=== PATIENT | female | born 1930 | race Caucasian/White ===

== ENCOUNTER 2018-07-02 19:19 | Inpatient (IN) ==
[2018-07-02] MEDS: 0.9 % SODIUM CHLORIDE 1,000 ML IV SCH (20:02)
--- NOTE | 2018-07-02 20:02 | Emergency Department Note ---
Abdominal Pain HPI - General Chief Complaint: Abdominal Pain Stated Complaint: abd. epigastric pain Time Seen by Provider: 07/02/18 19:25 Source: patient Mode of arrival: ambulatory Limitations: no limitations - History of Present Illness HPI Narrative: 87-year-old female presents with mid upper abdominal pain. Onset a week ago. Usually seems to be relieved by eating but never goes away completely. Food does seem to help. No nausea, vomiting. Has had diarrhea today. No fever or chills. No cough or cold symptoms. Saw her primary care provider this morning who adjusted her blood pressure medication and also put her on some Zantac. States that was around lunchtime today. She is still hurting so she decided to come in. She also complains of dizziness for the last couple days it is worse today. Improves with: eating Worsens with: nothing Associated symptoms: Reports: diarrhea. Denies: nausea, vomiting, fever, chills, constipation, dysuria, hematemesis, hematochezia, anorexia, syncope - Related Data Home Medications Medication Instructions Recorded Confirmed coenzyme Q10 100 mg capsule 100 mg PO BID cap 12/01/14 07/02/18 polyethylene glycol 3350 17 17 g PO QDAY each 12/01/14 07/02/18 gram/dose oral powder Flax Oil-[place] 3 1 cap PO QDAY 09/19/16 07/02/18 magnesium oxide 400 mg capsule 400 mg PO QDAY 09/19/16 07/02/18 multivitamin tablet 1 tab PO QDAY tab 09/19/16 07/02/18 salmon oil-omega-3 fatty acids 1,000 cap PO QAM cap 09/19/16 07/02/18 1,000 mg-200 mg capsule aspirin 81 mg chewable tablet 81 mg PO BID tab 08/28/17 07/02/18 calcium carbonate 200 mg calcium 1 cap PO QDAY 11/08/17 07/02/18 (500 mg)-vitamin D3 400 unit capsule Previous Rx's Medication Instructions Recorded hydrochlorothiazide 12.5 mg tablet 12.5 mg PO QDAY #90 tab 02/27/18 atorvastatin 20 mg tablet 20 mg PO QHS #90 tab 05/21/18 losartan 50 mg tablet 50 mg PO QDAY #30 tab 05/21/18 sulfamethoxazole 800 1 tab PO BID #14 tab 06/26/18 mg-trimethoprim 160 mg tablet Allergies Allergy/AdvReac Type Severity Reaction Status Date / Time Amoxicillin [From Augmentin] Allergy Unknown Unknown Verified 07/02/18 13:54 clavulanic acid Allergy Unknown Unknown Verified 07/02/18 13:54 [From Augmentin] Iodinated Contrast- Oral and Allergy Unknown Unknown Verified 07/02/18 13:54 IV Dye [Iodinated Contrast Media - IV Dye] Advair AdvReac Unknown Rash Uncoded 07/02/18 13:54 Review of Systems All systems ED: reviewed and negative except as stated. Abdominal Pain PMH - Past Medical History [facility], LAT[facility] Narrative: Medical History (Last Reviewed 12/25/17 @ 13:34 by Lorie Espitia MD) History of polymyalgia rheumatica (Chronic) Hypertensive renal disease (Chronic) History of hysterectomy (Chronic) Vitreous degeneration (Chronic) Vitamin D deficiency (Chronic) Benign paroxysmal positional vertigo (Chronic) Renal osteodystrophy (Chronic) Renal insufficiency (Chronic) PVC's (premature ventricular contractions) (Chronic) Pseudophakia (Chronic) Prediabetes (Chronic) Partial optic atrophy (Chronic) Palpitations (Chronic) Osteopenia (Chronic) Osteoarthrosis (Chronic) Obesity (Chronic) Polymyalgia (Chronic) Macular degeneration (Chronic) Keratoconjunctivitis sicca not specified as Sjogren's (Chronic) Hypothyroidism, acquired (Chronic) Hypertension, essential (Chronic) Hyperlipidemia (Chronic) Hypercalcemia (Chronic) Head injury (Chronic) Gastroesophageal reflux (Chronic) Diverticulosis of colon (Chronic) Depression (Chronic) Chronic kidney disease (CKD), stage III (moderate) (Chronic) Mahajan's palsy (Chronic) Anxiety disorder (Chronic) Anemia (Chronic) Personal history of allergy to radiographic dye (Chronic) Allergic rhinitis (Chronic) Past Surgical History (Last Reviewed 12/25/17 @ 13:34 by Lorie Espitia MD) History of lumbar laminectomy (Chronic) History of colonoscopy (Chronic 08/17/16) History of cataract surgery (Chronic) History of (Chronic) - Social History Smoking status: Never smoker Alcohol use: Reports: None Drug use: Reports: none Physical Exam Limitations: no limitations General appearance: alert, in no apparent distress Head: atraumatic, normocephalic, normal inspection Eye: Present: normal appearance. Absent: conjunctival injection ENT: normal exam, normal oropharynx, mucous membranes moist, TM's normal bilaterally, normal external ear exam Neck: Present: normal inspection, trachea midline. Absent: tenderness, lymphadenopathy Chest: Present: symmetric chest wall rise Respiratory: Present: normal lung sounds bilaterally. Absent: respiratory distress, rales/crackles, wheezes, accessory muscle use Cardiovascular: Present: regular rate, normal heart sounds Abdominal: Present: soft, tenderness (Midepigastric), normal bowel sounds. Absent: distention, mass Extremities: Present: normal inspection, normal capillary refill Neurological: Present: alert, oriented X3, normal gait Psychiatric: Present: normal affect, normal mood Skin: Present: warm, dry, intact, normal color. Absent: rash, cyanosis, diaphoresis, erythema Course Course Narrative: At 2100 I did speak with the hospitalist, Dr. Cadet who agrees to accept this patient Vital Signs Temperature 97.5 F 07/02/18 19:19 Pulse Rate 77 07/02/18 19:19 Respiratory Rate 20 07/02/18 19:19 Blood Pressure 208/89 07/02/18 19:19 Pulse Oximetry (%) 98 07/02/18 19:19 Temperature 97.5 F 07/02/18 19:19 Pulse Rate 68 07/02/18 20:56 Respiratory Rate 20 07/02/18 20:56 Blood Pressure 178/89 07/02/18 20:56 Pulse Oximetry (%) 98 07/02/18 20:56 Abdominal Pain - Lab Data Lab results reviewed: Yes I reviewed the patient's lab results. Result diagrams: 07/02/18 19:25 Lab Results 07/02/18 07/02/18 Range/Units 19:25 20:37 POC Hct 36.0 (36.0-48.0) % POC Sodium 114 L* (133-145) mmol/L Sodium Cancelled POC Potassium 4.1 (3.3-5.1) mmol/L Potassium Cancelled POC Chloride 84 L (96-108) mmol/L Chloride Cancelled Carbon Dioxide Cancelled POC Total CO2 18 L (22-30) mmol/L Anion Gap Cancelled POC BUN 14 (8-23) mg/dl BUN Cancelled Creatinine Cancelled POC Creatinine 1.0 (0.6-1.1) mg/dl GFR Calculation Cancelled BUN/Creatinine Ratio Cancelled Glucose Cancelled POC Glucose 133 H (70-105) mg/dL Calcium Cancelled POC WB Ioniz Calcium 1.00 L (1.16-1.32) mmol/L Total Bilirubin Cancelled AST Cancelled ALT Cancelled Alkaline Phosphatase Cancelled Total Protein Cancelled Albumin Cancelled Globulin Cancelled Albumin/Globulin Ratio Cancelled Amylase 112 H (28-100) U/L Lipase 73 H (7-60) U/L Disposition Pt seen by 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
[2018-07-02] MEDS ORDERED: PHENobarb/HYOSCY/ATROPINE/SCOP 1 DOSE BOTTLE PO ONE (20:14)
[2018-07-02 20:19] LABS: Amylase 112 U/L (28-100); Lipase 73 U/L (7-60)
[2018-07-02] MEDS ORDERED: ONDANSETRON 4 MG/2 ML VIAL IV ONE (20:27)
[2018-07-02 21:46] LABS: ALT/SGPT 18 U/l (0-40); Albumin 4.2 gm/dL (3.2-5.2); Albumin/Globulin Ratio 1.6 (1.0-2.3); Alkaline Phosphatase 74 U/L (39-117); Blood Urea Nitrogen 14 mg/dl (8-23)
[2018-07-02 22:33] LABS: Appearance,Urine CLEAR; Bacteria,Urine 0 /hpf (0); Bilirubin,Urine NEG (NEG); Color,Urine STRAW; Glucose,Urine (UA) NEGATIVE (NEG); Leukocyte Esterase,Urine NEG /uL (NEG); Mucus,Urine FEW /hpf (0); Protein,Urine NEG (NEG); Specific Gravity,Urine 1.008 (1.000-1.035); Urine Blood NEG mg/dL (<0.03); Urine RBC 0 /hpf (0-1); Urine Squamous Epithelial Cell 0 /hpf (0-4); Urine WBC < 1 /hpf (0-4); Urobilinogen,Urine NEG (NEG)
--- NOTE | 2018-07-02 23:11 | Internal Med History&Physical ---
Medical - H&P: HPI Patient information: Note initiated : 07/02/18 at 10:58 pm Service Date, if different from initiated Date: [] Patient: Melody Bailey a 87 y/o F admitted on for abd. epigastric pain. Chief Complaint: [] History of present illness: Ms. Bailey is a 87 year old F with h/o ckd, htn on hctz, presents to the Er today for evaluation of weakness and abdominal pain x 3-4 days. The patient notes that she was seen by her PCP for urinary tract infection approximately 1 week ago, the patient was prescribed Bactrim, a few days later the patient developed abdominal pain, epigastric and esophageal burning in nature, associated with reflux and non radiating, better with food, no aggravating factors. The patient had loose bowel movements x 1 day. The patient has nausea and poor appeitite x 1 week, the patient had diarrhea x 1 day since yesterday loose ,not watery, no blood. The patient denies any fever, chest pain, cough, she admits to being very weak and fatigued and dizzy. She has chronic neck pain, which is also being exacerbated at this time. The patient is accompained by her , her abdominal pain had resolved at the time of my evaluation. The patient in the ER she was afebrile hemodynamically stable heart rate 77 blood pressure 160 x 90 saturating 96% room air. WBC done today was 8.4, hemoglobin 12.5 platelets 441. Sodium was 113, potassium 4.2 bicarbonate 18 chloride 79 BUN 14 creatinine 1.2 glucose 133 Pt is being admitted to the hospital for further management. All systems: reviewed and no additional remarkable complaints except as stated (as per HPI rest negative) Medical - H&P: PMH Medical history: Medical History (Last Reviewed 12/25/17 @ 13:34 by Lorie Espitia MD) History of polymyalgia rheumatica (Chronic) Hypertensive renal disease (Chronic) History of hysterectomy (Chronic) Vitreous degeneration (Chronic) Vitamin D deficiency (Chronic) Benign paroxysmal positional vertigo (Chronic) Renal osteodystrophy (Chronic) Renal insufficiency (Chronic) PVC's (premature ventricular contractions) (Chronic) Pseudophakia (Chronic) Prediabetes (Chronic) Partial optic atrophy (Chronic) Palpitations (Chronic) Osteopenia (Chronic) Osteoarthrosis (Chronic) Obesity (Chronic) Polymyalgia (Chronic) Macular degeneration (Chronic) Keratoconjunctivitis sicca not specified as Sjogren's (Chronic) Hypothyroidism, acquired (Chronic) Hypertension, essential (Chronic) Hyperlipidemia (Chronic) Hypercalcemia (Chronic) Head injury (Chronic) Gastroesophageal reflux (Chronic) Diverticulosis of colon (Chronic) Depression (Chronic) Chronic kidney disease (CKD), stage III (moderate) (Chronic) Mahajan's palsy (Chronic) Anxiety disorder (Chronic) Anemia (Chronic) Personal history of allergy to radiographic dye (Chronic) Allergic rhinitis (Chronic) Surgical history: Past Surgical History (Last Reviewed 12/25/17 @ 13:34 by Lorie Espitia MD) History of lumbar laminectomy (Chronic) History of colonoscopy (Chronic 08/17/16) History of cataract surgery (Chronic) History of (Chronic) Pertinent family history: Family History (Last Reviewed 12/25/17 @ 13:34 by Lorie Espitia MD) Unknown Disorder of joint Medical - H&P: Meds Home Medications Medication Instructions Recorded Confirmed Type coenzyme Q10 100 mg capsule 100 mg PO BID cap 12/01/14 07/02/18 History polyethylene glycol 3350 17 17 g PO QDAY each 12/01/14 07/02/18 History gram/dose oral powder Flax Oil-[place] 3 1 cap PO QDAY 09/19/16 07/02/18 History magnesium oxide 400 mg capsule 400 mg PO QDAY 09/19/16 07/02/18 History multivitamin tablet 1 tab PO QDAY tab 09/19/16 07/02/18 History salmon oil-omega-3 fatty acids 1,000 cap PO QAM cap 09/19/16 07/02/18 History 1,000 mg-200 mg capsule aspirin 81 mg chewable tablet 81 mg PO BID tab 08/28/17 07/02/18 History calcium carbonate 200 mg calcium 1 cap PO QDAY 11/08/17 07/02/18 History (500 mg)-vitamin D3 400 unit capsule hydrochlorothiazide 12.5 mg tablet 12.5 mg PO QDAY #90 tab 02/27/18 07/02/18 Rx atorvastatin 20 mg tablet 20 mg PO QHS #90 tab 05/21/18 07/02/18 Rx Losartan [Cozaar] 50 mg PO BID 07/02/18 07/02/18 History Ranitidine HCl [Acid Painting Manager] 150 mg PO BID 07/02/18 07/02/18 History Allergies Allergy/AdvReac Type Severity Reaction Status Date / Time Amoxicillin [From Augmentin] Allergy Unknown Unknown Verified 07/02/18 13:54 clavulanic acid Allergy Unknown Unknown Verified 07/02/18 13:54 [From Augmentin] Iodinated Contrast- Oral and Allergy Unknown Unknown Verified 07/02/18 13:54 IV Dye [Iodinated Contrast Media - IV Dye] Advair AdvReac Unknown Rash Uncoded 07/02/18 13:54 Medical - H&P: Exam - Constitutional Vitals: Temp Pulse Resp BP Pulse Ox 97.5 F 62 17 183/82 96 07/02/18 19:19 07/02/18 22:52 07/02/18 22:52 07/02/18 22:52 07/02/18 22:52 Exam: GENERAL: The patient is a well-developed, well-nourished in no apparent distress. Is alert and oriented x3. Old frail lady VITAL SIGNS: Reviewed and as noted elsewhere. HEENT: Head is normocephalic and atraumatic. Extraocular muscles are intact. Pupils are equal, round, and reactive to light. Nares appeared normal. Mouth appears any without lesions. Mucous membranes are dry. NECK: Normal to inspection, Supple, No lymphadenopathy or thyromegaly. LUNGS: Air entry equal on both sides, no wheezing, crackles or rhonchi noted. No accessory muscles of respiration HEART: Regular rate and rhythm normal, S1 and S2 heard, no Gallop, S3 or Rub Noted, No Gross murmur heard. ABDOMEN: Soft, nontender, and nondistended. Positive bowel sounds. No hepatosplenomegaly was noted. EXTREMITIES: No cyanosis, clubbing, rash, lesions or edema. NEUROLOGIC: Cranial nerves II through XII are grossly intact. Motor and Sensory System Grossly Intact PSYCHIATRIC: Normal affect, Normal Mood. Appropriate Behavior. SKIN: No ulceration or wounds noted, No jaundice, No rash noted. Medical - H&P: Reslt - Labs CBC & Chem 7: 07/02/18 20:37 Labs: BMP 07/02/18 07/02/18 19:25 20:37 Sodium Cancelled 113 L* Potassium Cancelled 4.2 Chloride Cancelled 79 L Carbon Dioxide Cancelled 18 L BUN Cancelled 14 Creatinine Cancelled 1.2 H Glucose Cancelled 133 H Calcium Cancelled 8.6 Liver Function 07/02/18 07/02/18 Range/Units 19:25 20:37 Total Bilirubin Cancelled 0.2 AST Cancelled 33 ALT Cancelled 18 Alkaline Phosphatase Cancelled 74 Albumin Cancelled 4.2 Urine 07/02/18 Range/Units 21:01 Urine Color Straw Urine Appearance Clear Urine pH 7.0 (5.0-9.0) Ur Specific Tiger 1.008 (1.000-1.035) Urine Protein Neg (NEG) mg/dL Urine Glucose (UA) Negative (NEG) mg/dL Medical - H&P: A/P - Narrative A/P Narrative: A/P Hyponatremia -due to dehydration (poor intake), use of hctz check urine Na, urine osm, serum osm, tsh, and cortisol UTI -check UA HTN hold hctz, continue losartan, start amlodipine prn clonidine for now Abdominal pain gastritis likely, IV ppi for now mildly elevated lipase and amylase. if trending upwards will get CT abdomen and pelvis Depression/Anxiety resume home meds CKD Creat is stable Chr pain pain management for now. DVT hep sq Full code. Social History - Social History marital status: - Tobacco smoking status: Never smoker - Alcohol alcohol intake frequency: does not drink - Substance use substance use type: does not use
[2018-07-02 23:21] LABS: Osmolality,Urine 241 mOsm/kg (80-1000)
--- NOTE | 2018-07-02 23:25 | Emergency Department Note ---
ED Note Addendum Note Addendum: Hyponatremia. Agree with diagnosis and treatment per Dr. Cadet contacted and patient to be admitted
[2018-07-03] MEDS ORDERED: NALOXONE HCL 0.4 MG/ML VIAL IV PRN (00:04)
[2018-07-03] MEDS ORDERED: ACETAMINOPHEN 325 MG TABLET PO PRN (00:04)
[2018-07-03] MEDS ORDERED: oxyCODONE/APAP 5/325MG TABLET PO PRN (00:04)
[2018-07-03] MEDS ORDERED: PANTOPRAZOLE 40 MG VIAL IV ONE (00:13)
[2018-07-03] MEDS ORDERED: oxyCODONE HCL 5 MG TABLET PO ONE (00:21)
[2018-07-03] MEDS: 0.9 % SODIUM CHLORIDE 1,000 ML IV SCH ×3 (00:28→07:37)
[2018-07-03] MEDS: PANTOPRAZOLE 40 MG VIAL IV SCH ×3 (00:31→17:20)
[2018-07-03] MEDS ORDERED: ONDANSETRON 4 MG/2 ML VIAL ONE ×2 (01:29→04:03)
[2018-07-03] MEDS: ONDANSETRON 4 MG/2 ML VIAL IV PRN ×3 (01:33→11:30)
[2018-07-03] MEDS: 0.9 % SODIUM CHLORIDE 10 ML SYRINGE IV SCH ×3 (04:51→21:14)
[2018-07-03 07:02] LABS: Basophils # (Auto) 0 K/mcL (0.0-0.3); Basophils % (Auto) 0.1 % (0.0-2.0); Eosinophils # (Auto) 0 K/mcL (0.0-0.7); Eosinophils % (Auto) 0.2 % (0.0-7.0); Granulocytes % (Auto) 77.8 % (38.0-78.0); Lymphocytes # (Auto) 1.2 K/mcL (1.5-4.8); Mean Cell Volume 89.8 fL (80.0-100.0); Mean Corpuscular HGB Conc 32.7 g/dL (31.0-36.0); Monocytes # (Auto) 0.6 K/mcL (0.1-0.9); Monocytes % (Auto) 6.9 % (1.0-12.0); Platelet Count 352 K/mcL (140-440); RBC 3.67 M/mcL (4.00-5.20); Red Cell Distribution Width 13.6 % (11.5-14.5)
[2018-07-03 07:25] LABS: ALT/SGPT 18 U/l (0-40); Albumin 3.6 gm/dL (3.2-5.2); Albumin/Globulin Ratio 1.4 (1.0-2.3); Alkaline Phosphatase 70 U/L (39-117); Amylase 81 U/L (28-100); Bilirubin,Direct < 0.2 mg/dL (0.0-0.3); Blood Urea Nitrogen 11 mg/dl (8-23); Gamma Glutamyl Transpeptidase 23 U/L (5-36); Lipase 47 U/L (7-60); Uric Acid 2.6 mg/dL (2.5-8.0)
[2018-07-03] MEDS: cloNIDine HCL 0.1 MG TABLET PO PRN (07:34)
--- NOTE | 2018-07-03 07:49 | XRay Report ---
HISTORY: Abdominal pain FINDINGS: The bowel gas pattern is normal. There are a few vascular calcifications in the pelvis. No free intra-abdominal air is present. There is a levoscoliotic curvature in the upper lumbar spine. Postoperative changes are present following laminectomy with posterior fusion at L4-5. IMPRESSION: No acute abnormality Interpreted and Authenticated by: Keenan Matias 07/03/18
--- NOTE | 2018-07-03 08:49 | XRay Report ---
HISTORY: Hyponatremia with epigastric pain FINDINGS: The lungs are clear. The heart, mediastinum, dea and pleura are normal. No free intra-abdominal air is present. There has been no significant change since 08/09/11 IMPRESSION: Normal chest. Interpreted and Authenticated by: Keenan Matias 07/03/18
[2018-07-03] MEDS ORDERED: LOSARTAN 50 MG TABLET PO SCH (09:00)
[2018-07-03] MEDS ORDERED: METOCLOPRAMIDE 10 MG/2 ML VIAL IV PRN (09:12)
[2018-07-03] MEDS: HEPARIN 5,000 UNIT/ML VIAL SQ SCH ×2 (09:26→21:14)
[2018-07-03] MEDS: ASPIRIN 81 MG TAB.CHEW PO SCH ×2 (09:26→21:14)
[2018-07-03] MEDS: amLODIPine 5 MG TABLET PO SCH (09:27)
[2018-07-03] MEDS: LOSARTAN 50 MG TABLET PO SCH (09:27)
[2018-07-03] MEDS: MULTIVIT,THER IRON,CA,FA & MIN 1 TABLET PO SCH (09:28)
[2018-07-03] MEDS: MAGNESIUM OXIDE 400 MG TABLET PO SCH (09:29)
--- NOTE | 2018-07-03 10:05 | Cat Scan Report ---
CLINICAL INFORMATION: Abdominal and epigastric pain, nausea COMPARISON: 01/24/12 TECHNIQUE: The abdomen was imaged without oral or IV contrast, scanning from the diaphragm to the symphysis pubis. Sagittal and coronal reformats were created. The radiation exposure was limited using dose reduction technology FINDINGS: Mild parenchymal scarring is present in both lung bases. This is a chronic stable finding. There is a small to intermediate size hiatus hernia. This contains some radiopaque material which appears to be barium. There is no barium within the stomach. There is some barium or other radiopaque material in the proximal large intestine but there is no contrast in the small intestine. The stomach, large and small intestine are normal in caliber, without evidence of ileus or obstruction. There are several noninflamed diverticula in the sigmoid colon. The liver and spleen are normal in size and homogeneous. The gallbladder is contracted and there are few tiny stones layering along the posterior wall. The wall does not appear to be thickened. The bile ducts are nondilated. The pancreas, adrenals and kidneys appear normal. Contiguous with the mid and distal portion of the right ureter there are couple tiny calcifications. These are probably phleboliths in the right ovarian vein. The ureter is nondilated. Moderate amount calcified plaque is present in normal caliber abdominal aorta and iliac arteries. Urinary bladder is moderately distended but the wall is thin and no intraluminal filling defect is seen within the bladder. The uterus and ovaries are surgically absent. There is a small fat-containing left inguinal hernia. It measures 2 cm. Severe degenerative changes are present throughout the lumbar spine. There has been a laminectomy and posterior fusion at L4-5. Mild anterior wedge compression fracture is present at T10. Degenerative changes in the spine are chronic but there has been progression of the disc disease at L1-2 since 2012. IMPRESSION: Hiatus hernia which is unchanged from 2012 Cholelithiasis but without radiographic evidence of cholecystitis Diverticulosis but without evidence of diverticulitis Interpreted and Authenticated by: Keenan Matias 07/03/18
[2018-07-03] MEDS: HYDROmorphone 2 MG TABLET PO PRN ×2 (11:29→17:42)
[2018-07-03 13:47] LABS: Blood Urea Nitrogen 9 mg/dl (8-23)
[2018-07-03] MEDS ORDERED: DESMOPRESSIN ACETATE 1 MCG in 0.9 % SODIUM CHLORIDE 50 ML IV ONE (13:56)
[2018-07-03] MEDS ORDERED: SODIUM CHLORIDE 3 % 500 ML IV SCH ×2 (14:00→17:12)
--- NOTE | 2018-07-03 14:52 | Internal Med Progress Note ---
Medical - PN: Subj Patient information: Note initiated : 07/03/18 at 2:49 pm Service Date, if different from initiated Date: [] Patient: Melody Bailey a 87 y/o F admitted on 07/02/18 for abd. epigastric pain. Chief Complaint: [] Interval history: Ms. Bailey is a 87 year old F with h/o ckd, htn on hctz, presents to the Er today for evaluation of weakness and abdominal pain x 3-4 days. The patient notes that she was seen by her PCP for urinary tract infection approximately 1 week ago, the patient was prescribed Bactrim, a few days later the patient developed abdominal pain, epigastric and esophageal burning in n ature, associated with reflux and non radiating, better with food, no aggravating factors. The patient had loose bowel movements x 1 day. The patient has nausea and poor appeitite x 1 week, the patient had diarrhea x 1 day since yesterday loose ,not watery, no blood. The patient denies any fever, chest pain, cough, she admits to being very weak and fatigued and dizzy. She has chronic neck pain, which is also being exacerbated at this time. The patient is accompained by her , her abdominal pain had resolved at the time of my evaluation. The patient in the ER she was afebrile hemodynamically stable heart rate 77 blood pressure 160 x 90 saturating 96% room air. WBC done today was 8.4, hemoglobin 12.5 platelets 441. Sodium was 113, potassium 4.2 bicarbonate 18 chloride 79 BUN 14 creatinine 1.2 glucose 133 Pt is being admitted to the hospital for further management. 2/5 Pt seen examined, no acute issues, still has some abdominal pain, CT done without contrast, no acute issues, bladder was full, denney placed Sodium monitored, nephrology consulted to help with sodium management. Pertinent ROS: Denies headache, dizziness Denies chest pain, palpitations Denies cough or shortness of breath abdominal pain and nausea persistent, somewhat better than yesterday. - Constitutional Vitals: Vital Signs Temp Pulse Resp BP Pulse Ox 98.7 F 59 L 16 145/63 98 07/03/18 11:36 07/03/18 11:36 07/03/18 11:36 07/03/18 11:36 07/03/18 11:36 Period Temp Pulse Resp BP Sys/Trent Pulse Ox Last 24 Hr 97.5 F-98.7 F 59-77 14-20 145-208/63-90 96-100 Intake and Output 07/03/18 07/03/18 07/03/18 05:59 13:59 21:59 Intake Total 1300 2070 Output Total 500 1425 Balance 800 645 Weight 144 lb 8 oz Intake & Output: Intake & Output 07/03/18 07/03/18 07/03/18 05:59 13:59 21:59 Intake Total 1300 2070 Output Total 500 1425 Balance 800 645 Weight 144 lb 8 oz Intake: IV 1000 900 Sodium Chloride 0.9% 1,000 ml @ 1000 900 150 mls/hr IV .Q6H40M [facility] Rx#: [id number] Oral 300 1170 Output: Urine Catheter Amount 800 Void Amount 500 625 Other: Meal Lunch Percent of Meal Consumed 50% Feeding Ability Independent Urine Appearance Clear Urine Color Pale # Voids 2 1 Exam: Constitutional; Afebrile, cooperative, alert, not in distress. Respiratory system: Air Entry equal on both sides, No crackles or wheezing, no rhonchi. CVS- Rate rhythm regular, S1,S2 heard, no gallop, no rub. Abdomen- Soft nontender abdomen, no organomegaly, no tenderness, no guarding or rigidity, NEWSPAPER MANAGER- AOOx3, moving all extremities, no gross focal deficit noted. Medical - PN: Obj Da - Labs CBC & Chem 7: 07/03/18 03:50 07/03/18 12:50 Labs: Abnormal Lab Results 07/03/18 07/03/18 07/03/18 12:50 12:50 03:50 RBC Hgb Hct MPV Lymph % (Auto) Lymph # (Auto) POC Sodium Sodium 112 L* 116 L* POC Chloride Chloride 79 L 81 L Carbon Dioxide 20 L POC Total CO2 Creatinine Glucose 140 H POC Glucose Osmolality 236 L Calcium 8.4 L 8.4 L POC WB Ioniz Calcium Phosphorus 2.2 L Amylase Lipase 07/03/18 07/02/18 07/02/18 03:50 23:50 20:37 RBC 3.67 L Hgb 10.8 L Hct 33.0 L MPV 7.3 L Lymph % (Auto) 15.0 L Lymph # (Auto) 1.2 L POC Sodium 115 L* Sodium POC Chloride 83 L Chloride Carbon Dioxide POC Total CO2 20 L Creatinine Glucose POC Glucose 125 H Osmolality 240 L Calcium POC WB Ioniz Calcium 1.07 L Phosphorus Amylase Lipase 07/02/18 07/02/18 20:37 19:25 RBC Hgb Hct MPV Lymph % (Auto) Lymph # (Auto) POC Sodium 114 L* Sodium 113 L* POC Chloride 84 L Chloride 79 L Carbon Dioxide 18 L POC Total CO2 18 L Creatinine 1.2 H Glucose 133 H POC Glucose 133 H Osmolality Calcium POC WB Ioniz Calcium 1.00 L Phosphorus Amylase 112 H Lipase 73 H Meds: Medications Acetaminophen (Tylenol) 650 mg PO Q6HP PRN PRN Reason: PAIN/FEVER > 101 Amlodipine Besylate (Norvasc) 5 mg PO DAILY [facility] Last Admin: 07/03/18 09:27 Dose: 5 mg Documented by: Aspirin (Aspirin) 81 mg PO BID [facility] Last Admin: 07/03/18 09:26 Dose: 81 mg Documented by: Atorvastatin Calcium (Lipitor) 20 mg PO QHS [facility] Clonidine HCl (Catapres) 0.1 mg PO Q4HP PRN PRN Reason: Hypertension Last Admin: 07/03/18 07:34 Dose: 0.1 mg Documented by: Heparin Sodium (Porcine) (Heparin) 5,000 unit SQ Q12 [facility] Last Admin: 07/03/18 09:26 Dose: 5,000 unit Documented by: Hydromorphone HCl (Dilaudid) 2 mg PO Q4HP PRN PRN Reason: PAIN LEVEL 3-6 Last Admin: 07/03/18 11:29 Dose: 2 mg Documented by: Sodium Chloride (Sodium Chloride 3%) 500 mls @ 20 mls/hr IV ONCE [facility] Last Admin: 07/03/18 14:44 Dose: 20 mls/hr Documented by: Iron Carb/Multivit/Pillowcase Sewer/Folic Acid (Multivitamin W/Minerals) 1 tab PO DAILY [facility] Last Admin: 07/03/18 09:28 Dose: 1 tab Documented by: Losartan Potassium (Cozaar) 100 mg PO DAILY [facility] Last Admin: 07/03/18 09:27 Dose: 100 mg Documented by: Magnesium Oxide (Magnesium Oxide) 400 mg PO DAILY [facility] Last Admin: 07/03/18 09:29 Dose: 400 mg Documented by: Metoclopramide HCl (Reglan) 5 mg IV Q6HP PRN PRN Reason: Nausea And Vomiting Last Admin: 07/03/18 09:26 Dose: 5 mg Documented by: Naloxone HCl (Narcan) 0.1 mg IV Q2MIN PRN PRN Reason: Opiate Reversal Ondansetron HCl (Zofran) 4 mg IV Q4HP PRN PRN Reason: Nausea And Vomiting Last Admin: 07/03/18 11:30 Dose: 4 mg Documented by: Pantoprazole Sodium (Protonix) 40 mg IV BIDAC [facility] Last Admin: 07/03/18 07:30 Dose: 40 mg Documented by: Sodium Chloride (Saline Flush) 10 ml IV Q8 [facility] Last Admin: 07/03/18 14:44 Dose: 10 ml Documented by: Medical - PN: A/P - Time Spent With Patient Total time spent is greater than 50% in coordination of care (as documented) at patient's floor/unit and/or counseling patient: - Narrative A/P Narrative: A/P Hyponatremia -Dehydration, decreased oral intake p oor solute intake -urine sodium and urine osm suggestive of SIADH, but pt also on hctz. -nephrolgoy consulted -monitor sodium closely, target 8-10meq over 24 hrs UTI -resolved HTN hold hctz, continue losartan, start amlodipine prn clonidine for now Abdominal pain gastritis likely, IV ppi for now CT neg for any acute findings. Depression/Anxiety stable not on any meds at this time. CKD Creat is stable Nephrology following [facility] pain pain management for now. pt does not wish percoset, use oral dilaudid and see how she responds. DVT hep sq Full code. Medical - PN: Qual - VTE Deep Vein Thrombosis/Pulmonary Embolism Present on Admission: No
--- NOTE | 2018-07-03 16:01 | Nephrology Consult Note ---
History of Present Illness - Reason for Consult Patient information: Note initiated : 07/03/18 at 3:56 pm Service Date, if different from initiated Date: [] Patient: Melody Bailey 87 y/o F admitted on 07/02/18 for abd. epigastric pain. Chief Complaint: [] Consult date: 07/03/18 hyponatremia Requesting physician: Stephanie Cadet - Chief Complaint abdominal pain - History of Present Illness Patient is a 87 y/o female with PMH of htn, chronic pain, CKD stage III and other medical issues who is admitted with hyponatremia Patient states she had an episode of pansensitive E coli UTI which was treated with bactrim for a week, she started feeling sick with abdominal pain after that and was eating poorly and unable to drink much fluids, She was seen in the clinic yesterday for the same but her symptoms got worse and she presented to the ER. She also has issues with chronic neck and back pain. Patient on evaluation was found to have sodium level of 116 and hence hospitalised She was thought to have volume depletion and she has received normal saline with no improvement in her sodium level and level has fluctuated between 113-116 and on recheck this afternoon was 112 Patient c/o nausea and one episode of vomiting and loose stools before presentation at home She also had some dizziness/sensation of loss of balance she denied any fall denies any confusion she did feel very weak Review of Systems All systems PM: reviewed and no additional remarkable complaints except as stated ( ABOVE, NO fever, chills, no other issues) Past History Past medical history: History of polymyalgia rheumatica Chronic Hypertensive renal disease Chronic History of hysterectomy Chronic Vitreous degeneration Chronic Vitamin D deficiency Chronic Benign paroxysmal positional vertigo Chronic Renal osteodystrophy Chronic Renal insufficiency Chronic PVC's (premature ventricular contractions) Chronic Pseudophakia Chronic Prediabetes Chronic Partial optic atrophy Chronic Palpitations Chronic Osteopenia Chronic Osteoarthrosis Chronic Obesity Chronic Polymyalgia Chronic Macular degeneration Chronic Keratoconjunctivitis sicca not specified as Sjogren's Chronic Hypothyroidism, acquired Chronic Hypertension, essential Chronic Hyperlipidemia Chronic Hypercalcemia Chronic Head injury Chronic Gastroesophageal reflux Chronic Diverticulosis of colon Chronic Depression Chronic Chronic kidney disease (CKD), stage III (moderate) Chronic Mahajan's palsy Chronic Anxiety disorder Chronic Anemia Chronic Personal history of allergy to radiographic dye Chronic Allergic rhinitis Chronic Past surgical history: History of lumbar laminectomy Chronic History of colonoscopy Chronic 08/17/16 History of cataract surgery Chronic History of Chronic Past family history: not pertinent Past social history: no addictions lives with her Medications and Allergies Home Medications Medication Instructions Recorded Confirmed Type coenzyme Q10 100 mg capsule 100 mg PO BID cap 12/01/14 07/02/18 History polyethylene glycol 3350 17 17 g PO QDAY each 12/01/14 07/02/18 History gram/dose oral powder Flax Oil-Gunter 3 1 cap PO QDAY 09/19/16 07/02/18 History magnesium oxide 400 mg capsule 400 mg PO QDAY 09/19/16 07/02/18 History multivitamin tablet 1 tab PO QDAY tab 09/19/16 07/02/18 History salmon oil-omega-3 fatty acids 1,000 cap PO QAM cap 09/19/16 07/02/18 History 1,000 mg-200 mg capsule aspirin 81 mg chewable tablet 81 mg PO BID tab 08/28/17 07/02/18 History hydrochlorothiazide 12.5 mg tablet 12.5 mg PO QDAY #90 tab 02/27/18 07/02/18 Rx atorvastatin 20 mg tablet 20 mg PO QHS #90 tab 05/21/18 07/02/18 Rx Losartan [Cozaar] 50 mg PO BID 07/02/18 07/02/18 History Ranitidine HCl [Acid Rug Cleaner Helper] 150 mg PO BID 07/02/18 07/03/18 History Allergies Allergy/AdvReac Type Severity Reaction Status Date / Time Amoxicillin [From Augmentin] Allergy Unknown Unknown Verified 07/02/18 13:54 clavulanic acid Allergy Unknown Unknown Verified 07/02/18 13:54 [From Augmentin] Iodinated Contrast- Oral and Allergy Unknown Unknown Verified 07/02/18 13:54 IV Dye [Iodinated Contrast Media - IV Dye] Advair AdvReac Unknown Rash Uncoded 07/02/18 13:54 Exam - Vital Signs Vital signs: Temp Pulse Resp BP Pulse Ox 98.7 F 59 L 16 145/63 98 07/03/18 11:36 07/03/18 11:36 07/03/18 11:36 07/03/18 11:36 07/03/18 11:36 - General Appearance General appearance: appears started age, frail EENT: mucous membranes moist Neck: no JVD Respiratory: clear Cardiology: no rub, no edema, regular rate, regular rhythm Gastrointestinal: no tenderness, no guarding Integumentary: no rash, warm and dry Neurologic: alert and oriented x3 Musculoskeletal: no erythema, no cyanosis Psychiatric: mood/affect appropriate Results - Lab Results 07/03/18 03:50 07/03/18 12:50 Most recent lab results Calcium 8.4 mg/dl (8.6-10.4) L 07/03/18 12:50 Phosphorus 2.2 mg/dL (2.7-4.5) L 07/03/18 03:50 Magnesium 1.7 mg/dL (1.6-2.5) 07/03/18 03:50 Assessment and Plan (1) Hyponatremia Status: Acute - Narrative A/P Narrative: Patient with hypo osmolar hyponatremia with serum osm at 236, urine osm of 241, urine sodium of 54, serum uric acid of 2.6 no e/o fluid excess on exam likely excessive ADH secretion in the setting of severe pain, use of hctz and low solute intake likely contributing sodium level down to 112 with pt c/o weakness CXR is normal and CT abdomen with no concern of malignancy though this non contrast study given this will treat with 3% saline at 15-20cc/hour with ddavp at 1mcg q8hr to prevent overcorrection goal to correct sodium to 116-118 by 2pm tomorrow monitor serum sodium q2-4hr depending on response patient should be on fluid restriction at 1500cc/day will follow along CKD stage III: renal function stable and at baseline anemia: will need to trend Hb as has dropped, will defer to hospitalist Thank you for giving me an opportunity to participate in Ms Bailey's medical care, appreciate it
[2018-07-03 17:11] LABS: Blood Urea Nitrogen 10 mg/dl (8-23)
[2018-07-03 20:35] LABS: Blood Urea Nitrogen 11 mg/dl (8-23)
[2018-07-03] MEDS: SODIUM CHLORIDE 3 % 500 ML IV SCH (20:50)
[2018-07-03] MEDS: ATORVASTATIN 20 MG TABLET PO SCH (21:14)
[2018-07-04 01:30] LABS: Blood Urea Nitrogen 11 mg/dl (8-23)
[2018-07-04] MEDS ORDERED: DESMOPRESSIN ACETATE 1 MCG in 0.9 % SODIUM CHLORIDE 50 ML IV ONE ×3 (01:43→20:00)
[2018-07-04] MEDS: 0.9 % SODIUM CHLORIDE 10 ML SYRINGE IV SCH ×3 (05:48→20:39)
[2018-07-04] MEDS: SODIUM CHLORIDE 3 % 500 ML IV SCH (05:48)
[2018-07-04 05:50] LABS: Basophils # (Auto) 0 K/mcL (0.0-0.3); Basophils % (Auto) 0.2 % (0.0-2.0); Eosinophils # (Auto) 0.1 K/mcL (0.0-0.7); Eosinophils % (Auto) 1.7 % (0.0-7.0); Granulocytes % (Auto) 61.4 % (38.0-78.0); Lymphocytes # (Auto) 1.8 K/mcL (1.5-4.8); Lymphocytes % (Auto) 30.7 % (15.5-49.0); Mean Cell Volume 90.1 fL (80.0-100.0); Mean Corpuscular HGB Conc 32.9 g/dL (31.0-36.0); Monocytes # (Auto) 0.4 K/mcL (0.1-0.9); Platelet Count 318 K/mcL (140-440); RBC 3.39 M/mcL (4.00-5.20); Red Cell Distribution Width 13.5 % (11.5-14.5)
[2018-07-04 06:20] LABS: ALT/SGPT 17 U/l (0-40); Albumin 3.2 gm/dL (3.2-5.2); Albumin/Globulin Ratio 1.4 (1.0-2.3); Alkaline Phosphatase 59 U/L (39-117); Bilirubin,Direct < 0.2 mg/dL (0.0-0.3); Blood Urea Nitrogen 10 mg/dl (8-23); Gamma Glutamyl Transpeptidase 17 U/L (5-36); Uric Acid 2.6 mg/dL (2.5-8.0)
[2018-07-04] MEDS ORDERED: SODIUM CHLORIDE 3 % 500 ML IV SCH ×2 (06:45→18:30)
[2018-07-04] MEDS: PANTOPRAZOLE 40 MG VIAL IV SCH ×2 (07:06→16:48)
[2018-07-04 09:31] LABS: Blood Urea Nitrogen 9 mg/dl (8-23)
[2018-07-04] MEDS: MAGNESIUM OXIDE 400 MG TABLET PO SCH (09:41)
[2018-07-04] MEDS: amLODIPine 5 MG TABLET PO SCH (09:41)
[2018-07-04] MEDS: LOSARTAN 50 MG TABLET PO SCH (09:42)
[2018-07-04] MEDS: ASPIRIN 81 MG TAB.CHEW PO SCH ×2 (09:42→20:39)
[2018-07-04] MEDS: HEPARIN 5,000 UNIT/ML VIAL SQ SCH ×2 (09:42→20:39)
[2018-07-04] MEDS: MULTIVIT,THER IRON,CA,FA & MIN 1 TABLET PO SCH (09:42)
[2018-07-04] MEDS: cloNIDine HCL 0.1 MG TABLET PO PRN (09:53)
[2018-07-04] MEDS ORDERED: POTASSIUM PHOSPHATE 20 MEQ in DEXTROSE 5% IN WATER 250 ML IV ONE (10:00)
[2018-07-04 13:04] LABS: Blood Urea Nitrogen 10 mg/dl (8-23)
[2018-07-04 14:16] LABS: Carbon Dioxide Post Dose Urea NOT DETECTED (NOT DETECTED)
--- NOTE | 2018-07-04 17:06 | Nephrology Progress Note ---
Subjective Patient information: Note initiated : 07/04/18 at 5:03 pm Service Date, if different from initiated Date: [] Patient: Melody Bailey 87 y/o F admitted on 07/02/18 for abd. epigastric pain. Chief Complaint: [] Principal diagnosis: hyponatremia Interval history: patient states she is feeling better she has been able to eat as well, states abdominal pain resolved no SOB, CP, edema has had dizziness for a 3 weeks, states feels loss of balance serum sodium is slowly improving per goal Pertinent ROS: as above Objective - Vital Signs Vital signs: Vital Signs Temp Pulse Pulse Resp BP BP Pulse Ox 07/04/18 16:00 97.8 F 65 16 150/72 100 07/04/18 15:43 97.6 F 07/04/18 12:00 97.6 F 58 L 18 128/70 99 07/04/18 09:00 98.8 F 66 16 181/77 98 07/04/18 08:00 98 07/04/18 04:00 98.0 F 53 L 12 136/56 97 07/04/18 03:00 146/56 07/04/18 02:00 12 119/52 07/04/18 01:00 111/51 07/04/18 00:10 98.3 F 12 123/56 98 07/03/18 21:00 60 18 115/59 07/03/18 20:00 97.5 F 56 L 18 119/59 Intake and Output 07/04/18 07/04/18 07/04/18 05:59 13:59 21:59 Intake Total 409 1277.7955 160 Output Total 725 1200 1000 Balance -316 77.7955 -840 Intake: IV 379 330.9628 160 Ddavp 1 Mcg In Sodium Chloride 50 0.9% 50 ml @ 100.5 mls/hr IV ONCE ONE Rx#:[id number] Sodium Chloride 3% 500 ml @ 20 359 53 mls/hr IV ONCE [place] Rx#: [id number] Oral 820 Output: Urine Catheter Amount 725 1200 1000 Other: Meal Lunch Percent of Meal Consumed 100% Feeding Ability Assist with Tray Set Up Urine Appearance Clear Uretheral ([place]) Clear Urine Color Straw Straw Uretheral ([place]) Bright Yellow Urine Odor Normal Intake & Output: Intake & Output 07/04/18 07/04/18 07/04/18 05:59 13:59 21:59 Intake Total 409 1277.7955 160 Output Total 725 1200 1000 Balance -316 77.7955 -840 Intake: IV 302 783.0886 160 Ddavp 1 Mcg In Sodium Chloride 50 0.9% 50 ml @ 100.5 mls/hr IV ONCE ONE Rx#:[id number] Sodium Chloride 3% 500 ml @ 20 359 53 mls/hr IV ONCE [place] Rx#: [id number] Oral 820 Output: Urine Catheter Amount 725 1200 1000 Other: Meal Lunch Percent of Meal Consumed 100% Feeding Ability Assist with Tray Set Up Urine Appearance Clear Uretheral ([place]) Clear Urine Color Straw Straw Uretheral ([place]) Bright Yellow Urine Odor Normal - General Appearance General appearance: appears started age EENT: mucous membranes moist Neck: no JVD Respiratory: clear Cardiology: no rub, no edema, regular rate, regular rhythm Gastrointestinal: no tenderness, no guarding Integumentary: warm and dry Neurologic: no focal deficit, alert and oriented x3 Musculoskeletal: no cyanosis, no clubbing Psychiatric: mood/affect appropriate - Lab 07/04/18 03:30 07/04/18 12:04 Most recent lab results Calcium 8.2 mg/dl (8.6-10.4) L 07/04/18 12:04 Phosphorus 1.9 mg/dL (2.7-4.5) L 07/04/18 03:30 Magnesium 1.7 mg/dL (1.6-2.5) 07/04/18 03:30 Assessment and Plan (1) Hyponatremia Status: Acute - Narrative A/P Narrative: Patient with hypo osmolar hyponatremia with serum osm at 236, urine osm of 241, urine sodium of 54, serum uric acid of 2.6 no e/o fluid excess on exam likely excessive ADH secretion in the setting of severe pain, use of hctz and low solute intake likely contributing CXR is normal and CT abdomen with no concern of malignancy though this non contrast study serum sodium improved appropriately to 118 this afternoon repeat labs pending depending on this will start sodium chloride tabs vs continue 3% saline with ddavp fluid restriction to 1.5L HOLD hctz will follow along CKD stage III: renal function stable and at baseline anemia: will need to trend Hb as has dropped, will defer to hospitalist Thank you for giving me an opportunity to participate in Ms Leo's medical care, appreciate it
--- NOTE | 2018-07-04 18:03 | Internal Med Progress Note ---
Medical - PN: Subj Patient information: Note initiated : 07/04/18 at 6:01 pm Service Date, if different from initiated Date: [] Patient: Melody Bailey a 87 y/o F admitted on 07/02/18 for abd. epigastric pain. Chief Complaint: f/u hyponatremia Interval history: 07/02 Ms. Bailey is a 87 year old F with h/o CKD, HTN on HCTZ, who presents to the ER for evaluation of weakness and abdominal pain x 3-4 days. The patient notes that she was seen by her PCP for urinary tract infection approximately 1 week ago, the patient was prescribed Bactrim, a few days later the patient developed abdominal pain, epigastric and esophageal burning in nature, associated with reflux and non radiating, better with food, no aggravating factors. The patient had loose bowel movements x 1 day. The patient has nausea and poor appetite x 1 week, the patient had diarrhea x 1 day since yesterday loose ,not watery, no blood. The patient denies any fever, chest pain, cough, she admits to being very weak and fatigued and dizzy. She has chronic neck pain, which is also being exacerbated at this time. The patient is accompanied by her , her abdominal pain had resolved at the time of my evaluation. The patient in the ER she was afebrile hemodynamically stable heart rate 77 blood pressure 160 x 90 saturating 96% room air. WBC done today was 8.4, hemoglobin 12.5 platelets 441. Sodium was 113, potassium 4.2 bicarbonate 18 chloride 79 BUN 14 creatinine 1.2 glucose 133 Pt is being admitted to the hospital for further management. 2/5 Pt seen examined, no acute issues, still has some abdominal pain, CT done without contrast, no acute issues, bladder was full, Conway placed Sodium monitored, nephrology consulted to help with sodium management. 2/6 Feels much better this morning and afternoon. No dizziness. Eating well. No abdominal pain. Sodium is slowly increased up to 118, most recent results pending. Was on and off 3% saline overnight and today Discussed with nephrology - Constitutional Vitals: Vital Signs Temp Pulse Resp BP Pulse Ox 97.8 F 65 16 150/72 100 07/04/18 16:00 07/04/18 16:00 07/04/18 16:00 07/04/18 16:00 07/04/18 16:00 Period Temp Pulse Resp BP Sys/Trent Pulse Ox Last 24 Hr 97.5 F-98.8 F 53-66 12-18 111-181/51-77 97-100 Intake and Output 07/04/18 07/04/18 07/04/18 05:59 13:59 21:59 Intake Total 409 1277.7955 160 Output Total 725 1200 1000 Balance -316 77.7955 -840 Intake & Output: Intake & Output 07/04/18 07/04/18 07/04/18 05:59 13:59 21:59 Intake Total 409 1277.7955 160 Output Total 725 1200 1000 Balance -316 77.7955 -840 Intake: IV 877 948.4805 160 Ddavp 1 Mcg In Sodium Chloride 50 0.9% 50 ml @ 100.5 mls/hr IV ONCE ONE Rx#:[id number] Sodium Chloride 3% 500 ml @ 20 359 53 mls/hr IV ONCE [place] Rx#: [id number] Oral 820 Output: Urine Catheter Amount 725 1200 1000 Other: Meal Lunch Percent of Meal Consumed 100% Feeding Ability Assist with Tray Set Up Urine Appearance Clear Uretheral ([place]) Clear Urine Color Straw Straw Uretheral ([place]) Bright Yellow Urine Odor Normal Exam: General: In no acute distress Chest: Clear, unlabored Cardio vascular: Regular, no peripheral edema Abdomen: Soft, no tenderness, active bowel sounds Skin: Mildly decreased turgor Neuro: Alert, oriented to person, place, situation, moves all extremities equally. Medical - PN: Obj Da - Labs CBC & Chem 7: 07/04/18 03:30 07/04/18 12:04 Labs: Abnormal Lab Results 07/04/18 07/04/18 07/04/18 12:04 08:03 03:30 RBC Hgb Hct POC Hct MPV Lymph % (Auto) Lymph # (Auto) POC Sodium Sodium 118 L* 120 L 116 L* POC Chloride Chloride 86 L 89 L 87 L Carbon Dioxide 21 L 19 L 20 L POC Total CO2 Creatinine Glucose 137 H POC Glucose Osmolality Calcium 8.2 L 8.3 L 8.3 L POC WB Ioniz Calcium Phosphorus 1.9 L Total Protein 5.5 L Amylase Lipase 07/04/18 07/04/18 07/03/18 03:30 00:10 19:41 RBC 3.39 L Hgb 10.0 L Hct 30.5 L POC Hct MPV Lymph % (Auto) Lymph # (Auto) POC Sodium Sodium 114 L* 113 L* POC Chloride Chloride 84 L 81 L Carbon Dioxide 21 L POC Total CO2 Creatinine Glucose 108 H POC Glucose Osmolality Calcium 8.1 L 8.1 L POC WB Ioniz Calcium Phosphorus Total Protein Amylase Lipase 07/03/18 07/03/18 07/03/18 16:10 12:50 12:50 RBC Hgb Hct POC Hct 34.0 L MPV Lymph % (Auto) Lymph # (Auto) POC Sodium 113 L* Sodium 111 L* 112 L* POC Chloride 84 L Chloride 79 L 79 L Carbon Dioxide 19 L 20 L POC Total CO2 19 L Creatinine Glucose 115 H 140 H POC Glucose 111 H Osmolality 236 L Calcium 8.4 L 8.4 L POC WB Ioniz Calcium 1.06 L Phosphorus Total Protein Amylase Lipase 07/03/18 07/03/18 07/02/18 03:50 03:50 23:50 RBC 3.67 L Hgb 10.8 L Hct 33.0 L POC Hct MPV 7.3 L Lymph % (Auto) 15.0 L Lymph # (Auto) 1.2 L POC Sodium 115 L* Sodium 116 L* POC Chloride 83 L Chloride 81 L Carbon Dioxide POC Total CO2 20 L Creatinine Glucose POC Glucose 125 H Osmolality Calcium 8.4 L POC WB Ioniz Calcium 1.07 L Phosphorus 2.2 L Total Protein Amylase Lipase 07/02/18 07/02/18 07/02/18 20:37 20:37 19:25 RBC Hgb Hct POC Hct MPV Lymph % (Auto) Lymph # (Auto) POC Sodium 114 L* Sodium 113 L* POC Chloride 84 L Chloride 79 L Carbon Dioxide 18 L POC Total CO2 18 L Creatinine 1.2 H Glucose 133 H POC Glucose 133 H Osmolality 240 L Calcium POC WB Ioniz Calcium 1.00 L Phosphorus Total Protein Amylase 112 H Lipase 73 H Meds: Medications Acetaminophen (Tylenol) 650 mg PO Q6HP PRN PRN Reason: PAIN/FEVER > 101 Last Admin: 07/04/18 16:45 Dose: 650 mg Documented by: Amlodipine Besylate (Norvasc) 5 mg PO DAILY [facility] Last Admin: 07/04/18 09:41 Dose: 5 mg Documented by: Aspirin (Aspirin) 81 mg PO BID [facility] Last Admin: 07/04/18 09:42 Dose: 81 mg Documented by: Atorvastatin Calcium (Lipitor) 20 mg PO QHS [facility] Last Admin: 07/03/18 21:14 Dose: 20 mg Documented by: Clonidine HCl (Catapres) 0.1 mg PO Q4HP PRN PRN Reason: Hypertension Last Admin: 07/04/18 09:53 Dose: 0.1 mg Documented by: Heparin Sodium (Porcine) (Heparin) 5,000 unit SQ Q12 [facility] Last Admin: 07/04/18 09:42 Dose: 5,000 unit Documented by: Hydromorphone HCl (Dilaudid) 2 mg PO Q4HP PRN PRN Reason: PAIN LEVEL 3-6 Last Admin: 07/03/18 17:42 Dose: 2 mg Documented by: Sodium Chloride (Sodium Chloride 3%) 500 mls @ 20 mls/hr IV ONCE [facility] Last Infusion: 07/04/18 10:03 Dose: Infused Documented by: Iron Carb/Multivit/Clay [employer]visor/Folic Acid (Multivitamin W/Minerals) 1 tab PO DAILY [facility] Last Admin: 07/04/18 09:42 Dose: 1 tab Documented by: Losartan Potassium (Cozaar) 100 mg PO DAILY [facility] Last Admin: 07/04/18 09:42 Dose: 100 mg Documented by: Magnesium Oxide (Magnesium Oxide) 400 mg PO DAILY [facility] Last Admin: 07/04/18 09:41 Dose: 400 mg Documented by: Metoclopramide HCl (Reglan) 5 mg IV Q6HP PRN PRN Reason: Nausea And Vomiting Last Admin: 07/03/18 09:26 Dose: 5 mg Documented by: Naloxone HCl (Narcan) 0.1 mg IV Q2MIN PRN PRN Reason: Opiate Reversal Ondansetron HCl (Zofran) 4 mg IV Q4HP PRN PRN Reason: Nausea And Vomiting Last Admin: 07/03/18 11:30 Dose: 4 mg Documented by: Pantoprazole Sodium (Protonix) 40 mg IV BIDAC [facility] Last Admin: 07/04/18 16:48 Dose: 40 mg Documented by: Sodium Chloride (Saline Flush) 10 ml IV Q8 [facility] Last Admin: 07/04/18 14:46 Dose: 10 ml Documented by: Medical - PN: A/P - Time Spent With Patient Total time spent is greater than 50% in coordination of care (as documented) at patient's floor/unit and/or counseling patient: Greater than 35 minutes - Narrative A/P Narrative: 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 -Probable contribution from HCTZ. -Discussed with nephrology throughout the day -Depending on most recent sodium which is pending, will treat with further 3% versus salt tablets UTI -resolved HTN -Holding HCTZ, continued with losartan. Started amlodipine for further blood pressure control -Continue with as needed clonidine Abdominal pain -Resolved -Suspect secondary to gastritis, continues with IV proton pump inhibitor -CT neg for any acute findings. Depression/Anxiety -stable not on any meds at this time. CKD Creat is stable Nephrology following Chronic pain pain management for now. pt does not wish Percocet, use oral Dilaudid and see how she responds. DVT hep sq Full code. Medical - PN: Qual - VTE Deep Vein Thrombosis/Pulmonary Embolism Present on Admission: No
[2018-07-04 18:08] LABS: Blood Urea Nitrogen 9 mg/dl (8-23)
[2018-07-04] MEDS ORDERED: PHOSPHORUS 250 MG TABLET PO ONE (18:34)
[2018-07-04] MEDS: ATORVASTATIN 20 MG TABLET PO SCH (20:38)
[2018-07-04] MEDS: HYDROmorphone 2 MG TABLET PO PRN (20:43)
[2018-07-05 00:03] LABS: Blood Urea Nitrogen 10 mg/dl (8-23)
[2018-07-05] MEDS ORDERED: DESMOPRESSIN ACETATE 1 MCG in 0.9 % SODIUM CHLORIDE 50 ML IV ONE ×2 (04:00→12:00)
[2018-07-05] MEDS: 0.9 % SODIUM CHLORIDE 10 ML SYRINGE IV SCH ×3 (04:07→20:32)
[2018-07-05 04:51] LABS: Basophils # (Auto) 0.1 K/mcL (0.0-0.3); Eosinophils # (Auto) 0.2 K/mcL (0.0-0.7); Eosinophils % (Auto) 3.3 % (0.0-7.0); Granulocytes % (Auto) 65.2 % (38.0-78.0); Lymphocytes # (Auto) 1.6 K/mcL (1.5-4.8); Lymphocytes % (Auto) 24.1 % (15.5-49.0); Mean Cell Volume 89.5 fL (80.0-100.0); Mean Corpuscular HGB Conc 32.7 g/dL (31.0-36.0); Monocytes # (Auto) 0.4 K/mcL (0.1-0.9); Monocytes % (Auto) 6.4 % (1.0-12.0); Platelet Count 350 K/mcL (140-440); RBC 3.53 M/mcL (4.00-5.20); Red Cell Distribution Width 13.2 % (11.5-14.5)
[2018-07-05 04:58] LABS: ALT/SGPT 17 U/l (0-40); Albumin 3.3 gm/dL (3.2-5.2); Albumin/Globulin Ratio 1.4 (1.0-2.3); Alkaline Phosphatase 64 U/L (39-117); Bilirubin,Direct < 0.2 mg/dL (0.0-0.3); Blood Urea Nitrogen 9 mg/dl (8-23); Gamma Glutamyl Transpeptidase 18 U/L (5-36); Uric Acid 2.4 mg/dL (2.5-8.0)
[2018-07-05] MEDS ORDERED: SODIUM CHLORIDE 3 % 500 ML IV SCH (05:44)
[2018-07-05] MEDS: PANTOPRAZOLE 40 MG VIAL IV SCH ×2 (09:12→17:01)
[2018-07-05] MEDS: LOSARTAN 50 MG TABLET PO SCH (09:19)
[2018-07-05] MEDS: MAGNESIUM OXIDE 400 MG TABLET PO SCH (09:20)
[2018-07-05] MEDS: HEPARIN 5,000 UNIT/ML VIAL SQ SCH ×2 (09:20→20:31)
[2018-07-05] MEDS: ASPIRIN 81 MG TAB.CHEW PO SCH ×2 (09:20→20:31)
[2018-07-05] MEDS: NEUTRA PHOS 1 PACKET PO SCH ×2 (09:21→20:31)
[2018-07-05] MEDS: amLODIPine 5 MG TABLET PO SCH (09:21)
[2018-07-05] MEDS: MULTIVIT,THER IRON,CA,FA & MIN 1 TABLET PO SCH (09:21)
[2018-07-05] MEDS: HYDROmorphone 2 MG TABLET PO PRN ×2 (09:21→20:31)
--- NOTE | 2018-07-05 10:03 | Cat Scan Report ---
History: Hyponatremia, evaluate for intracranial mass TECHNIQUE: The brain was imaged without contrast at 2.5 mm intervals. The radiation exposure was limited using dose reduction technology. FINDINGS: There is mild generalized cerebral atrophy, most apparent around the sylvian fissures. There is severe white matter disease with large confluent areas of decreased attenuation in the centrum semiovale and her radiata throughout the frontal and parietal lobes with milder involvement in the occipital and posterior temporal lobes. This has no mass effect. No tumor is identified on this nonenhanced study. There is no hemorrhage or cortical infarct. No abnormality seen in the brainstem and cerebellum are basal ganglia. There is no apparent pituitary mass. IMPRESSION: Severe diffuse white matter disease which is probably due to age-related ischemia or degeneration. No evidence of a mass or acute intracranial lesion. Interpreted and Authenticated by: Keenan Matias 07/05/18
[2018-07-05] MEDS ORDERED: SODIUM CHLORIDE 3 % 500 ML IV ONE (10:30)
[2018-07-05] MEDS: POLYETHYLENE GLYCOL 3350 17 GM PACKET PO PRN (10:37)
--- NOTE | 2018-07-05 17:24 | Nephrology Progress Note ---
Subjective Patient information: Note initiated : 07/05/18 at 5:21 pm Service Date, if different from initiated Date: [] Patient: Melody Bailey 87 y/o F admitted on 07/02/18 for abd. epigastric pain. Chief Complaint: [] Principal diagnosis: hyponatremia Interval history: patient denies any new issues abdominal pain resolved no SOB, edema, CP still feels "weird" ongoing PT appetite fair Pertinent ROS: as above Objective - Vital Signs Vital signs: Vital Signs Temp Pulse Resp BP Pulse Ox 07/05/18 16:00 99.1 F H 65 16 153/63 99 07/05/18 12:00 98.7 F 62 18 140/62 99 07/05/18 08:00 98 F 64 18 145/74 99 07/05/18 04:00 98.4 F 54 L 16 145/65 98 07/05/18 00:00 98.0 F 58 L 18 160/73 98 07/04/18 20:00 97.6 F 60 16 155/67 100 Intake and Output 07/05/18 07/05/18 07/05/18 05:59 13:59 21:59 Intake Total 385.25 602.25 Output Total 1325 1050 Balance -939.75 602.25 -1050 Intake: IV 265.25 122.25 Ddavp 1 Mcg In Sodium Chloride 50.25 0.9% 50 ml @ 200 mls/hr IV ONCE ONE Rx#:[id number] Sodium Chloride 3% 500 ml @ 20 215 72 mls/hr IV ONCE [place] Rx#: [id number] Oral 120 480 Output: Urine Catheter Amount 1325 1050 Other: Meal Breakfast Feeding Ability Assist with Tray Set Up Urine Appearance Clear Uretheral ([place]) Clear Urine Color Bright Yellow Dark Yellow Uretheral ([place]) Bright Yellow Intake & Output: Intake & Output 07/05/18 07/05/18 07/05/18 05:59 13:59 21:59 Intake Total 385.25 602.25 Output Total 1325 1050 Balance -939.75 602.25 -1050 Intake: IV 265.25 122.25 Ddavp 1 Mcg In Sodium Chloride 50.25 0.9% 50 ml @ 200 mls/hr IV ONCE ONE Rx#:[id number] Sodium Chloride 3% 500 ml @ 20 215 72 mls/hr IV ONCE [place] Rx#: [id number] Oral 120 480 Output: Urine Catheter Amount 1325 1050 Other: Meal Breakfast Feeding Ability Assist with Tray Set Up Urine Appearance Clear Uretheral ([place]) Clear Urine Color Bright Yellow Dark Yellow Uretheral ([place]) Bright Yellow - General Appearance General appearance: appears started age, frail EENT: mucous membranes moist Neck: no JVD Respiratory: clear Cardiology: no rub, no edema, normal S1, normal S2 Gastrointestinal: no tenderness, no guarding Integumentary: warm and dry Neurologic: alert and oriented x3 Musculoskeletal: no erythema, no cyanosis Psychiatric: mood/affect appropriate - Lab 07/05/18 03:45 07/05/18 14:38 Most recent lab results Calcium 8.3 mg/dl (8.6-10.4) L 07/05/18 03:45 Phosphorus 1.9 mg/dL (2.7-4.5) L 07/05/18 03:45 Magnesium 1.7 mg/dL (1.6-2.5) 07/05/18 03:45 Assessment and Plan (1) Hyponatremia Status: Acute - Narrative A/P Narrative: Patient with hypo osmolar hyponatremia with serum osm at 236, urine osm of 241, urine sodium of 54, serum uric acid of 2.6 no e/o fluid excess on exam likely excessive ADH secretion in the setting of severe pain, use of hctz and low solute intake likely contributing CXR is normal and CT abdomen with no concern of malignancy though this non contrast study serum sodium improved appropriately to 123 today as she has just received ddavp at last lab draw I did not hold 3% saline as she trends down again I will hold this 6 after ddavp dose recheck labs in pm, if stable, will start sodium chloride tab and continue with fluid restriction fluid restriction to 1.4L in 24 hrs HOLD hctz will follow along CKD stage III: renal function stable and at baseline anemia: Hb stable for now low phos, oral replacement started Thank you for giving me an opportunity to participate in Ms Bailey's medical care, appreciate it
[2018-07-05] MEDS: ATORVASTATIN 20 MG TABLET PO SCH (20:31)
--- NOTE | 2018-07-05 20:58 | Internal Med Progress Note ---
Medical - PN: Subj Patient information: Note initiated : 07/05/18 at 8:54 pm Service Date, if different from initiated Date: [] Patient: Melody Bailey a 87 y/o F admitted on 07/02/18 for abd. epigastric pain. Chief Complaint: Follow-up hyponatremia Interval history: 07/02 Ms. Bailey is a 87 year old F with h/o CKD, HTN on HCTZ, who presents to the ER for evaluation of weakness and abdominal pain x 3-4 days. The patient notes that she was seen by her PCP for urinary tract infection approximately 1 week ago, the patient was prescribed Bactrim, a few days later the patient developed abdominal pain, epigastric and esophageal burning in nature, associated with reflux and non radiating, better with food, no aggravat ing factors. The patient had loose bowel movements x 1 day. The patient has nausea and poor appetite x 1 week, the patient had diarrhea x 1 day since yesterday loose ,not watery, no blood. The patient denies any fever, chest pain, cough, she admits to being very weak and fatigued and dizzy. She has chronic neck pain, which is also being exacerbated at this time. The patient is accompanied by her , her abdominal pain had resolved at the time of my evaluation. The patient in the ER she was afebrile hemodynamically stable heart rate 77 blood pressure 160 x 90 saturating 96% room air. WBC done today was 8.4, hemoglobin 12.5 platelets 441. Sodium was 113, potassium 4.2 bicarbonate 18 chloride 79 BUN 14 creatinine 1.2 glucose 133 Pt is being admitted to the hospital for further management. 2/5 Pt seen examined, no acute issues, still has some abdominal pain, CT done without contrast, no acute issues, bladder was full, Conway placed Sodium monitored, nephrology consulted to help with sodium management. 2/6 Feels much better this morning and afternoon. No dizziness. Eating well. No abdominal pain. Sodium is slowly increased up to 118, most recent results pending. Was on and off 3% saline overnight and today Discussed with nephrology 2/7 Complaining of some right lower quadrant, superficial abdominal tenderness today. Working on bowel care as well. No confusion, no dizziness. Appetite remains good. Has been off and on 3% saline, currently during the day did achieve increase in her serum sodium. - Constitutional Vitals: Vital Signs Temp Pulse Resp BP Pulse Ox 98.0 F 65 16 125/60 100 07/05/18 20:00 07/05/18 20:00 07/05/18 20:00 07/05/18 20:00 07/05/18 20:00 Period Temp Pulse Resp BP Sys/Trent Pulse Ox Last 24 Hr 98 F-99.1 F 54-65 16-18 125-160/60-74 98-100 Intake and Output 07/05/18 07/05/18 07/05/18 05:59 13:59 21:59 Intake Total 385.25 602.25 520 Output Total 1325 1050 Balance -939.75 602.25 -530 Intake & Output: Intake & Output 07/05/18 07/05/18 07/05/18 05:59 13:59 21:59 Intake Total 385.25 602.25 520 Output Total 1325 1050 Balance -939.75 602.25 -530 Intake: IV 265.25 122.25 160 Ddavp 1 Mcg In Sodium Chloride 50.25 0.9% 50 ml @ 200 mls/hr IV ONCE ONE Rx#:[id number] Sodium Chloride 3% 500 ml @ 20 215 72 160 mls/hr IV ONCE ONE Rx#: [id number] Oral 120 480 360 Output: Urine Catheter Amount 1325 1050 Other: Meal Breakfast Dinner Percent of Meal Consumed 100% Feeding Ability Assist with Tray Set Up Independent Urine Appearance Clear Uretheral ([place]) Clear Clear Urine Color Bright Yellow Dark Yellow Uretheral ([place]) Bright Yellow Pale Exam: General: In bed, no acute distress Chest: Clear, unlabored Cardio vascular: Regular, no edema Abdomen: Soft, very mild superficial right lower quadrant tenderness without guarding or rebound. Active bowel sounds in all quadrants. Neuro: Alert, oriented, moves all extremities equally. Medical - PN: Obj Da - Labs CBC & Chem 7: 07/05/18 03:45 07/05/18 19:03 Labs: Abnormal Lab Results 07/05/18 07/05/18 07/05/18 19:03 14:38 08:20 RBC Hgb Hct POC Hct MPV Lymph % (Auto) Lymph # (Auto) POC Sodium Sodium 124 L 123 L 118 L* POC Chloride Chloride Carbon Dioxide POC Total CO2 Creatinine Glucose POC Glucose Osmolality Uric Acid Calcium POC WB Ioniz Calcium Phosphorus Total Protein 07/05/18 07/05/18 07/05/18 03:45 03:45 02:00 RBC 3.53 L Hgb 10.3 L Hct 31.6 L POC Hct MPV 7.3 L Lymph % (Auto) Lymph # (Auto) POC Sodium Sodium 121 L 118 L* POC Chloride Chloride 89 L Carbon Dioxide POC Total CO2 Creatinine Glucose POC Glucose Osmolality Uric Acid 2.4 L Calcium 8.3 L POC WB Ioniz Calcium Phosphorus 1.9 L Total Protein 5.6 L 07/04/18 07/04/18 07/04/18 22:00 16:13 12:04 RBC Hgb Hct POC Hct MPV Lymph % (Auto) Lymph # (Auto) POC Sodium Sodium 116 L* 115 L* 118 L* POC Chloride Chloride 85 L 83 L 86 L Carbon Dioxide 20 L 18 L 21 L POC Total CO2 Creatinine Glucose 111 H 139 H 137 H POC Glucose Osmolality Uric Acid Calcium 8.0 L 8.4 L 8.2 L POC WB Ioniz Calcium Phosphorus Total Protein 07/04/18 07/04/18 07/04/18 08:03 03:30 03:30 RBC 3.39 L Hgb 10.0 L Hct 30.5 L POC Hct MPV Lymph % (Auto) Lymph # (Auto) POC Sodium Sodium 120 L 116 L* POC Chloride Chloride 89 L 87 L Carbon Dioxide 19 L 20 L POC Total CO2 Creatinine Glucose POC Glucose Osmolality Uric Acid Calcium 8.3 L 8.3 L POC WB Ioniz Calcium Phosphorus 1.9 L Total Protein 5.5 L 07/04/18 07/03/18 07/03/18 00:10 19:41 16:10 RBC Hgb Hct POC Hct 34.0 L MPV Lymph % (Auto) Lymph # (Auto) POC Sodium 113 L* Sodium 114 L* 113 L* 111 L* POC Chloride 84 L Chloride 84 L 81 L 79 L Carbon Dioxide 21 L 19 L POC Total CO2 19 L Creatinine Glucose 108 H 115 H POC Glucose 111 H Osmolality Uric Acid Calcium 8.1 L 8.1 L 8.4 L POC WB Ioniz Calcium 1.06 L Phosphorus Total Protein 07/03/18 07/03/18 07/03/18 12:50 12:50 03:50 RBC Hgb Hct POC Hct MPV Lymph % (Auto) Lymph # (Auto) POC Sodium Sodium 112 L* 116 L* POC Chloride Chloride 79 L 81 L Carbon Dioxide 20 L POC Total CO2 Creatinine Glucose 140 H POC Glucose Osmolality 236 L Uric Acid Calcium 8.4 L 8.4 L POC WB Ioniz Calcium Phosphorus 2.2 L Total Protein 07/03/18 07/02/18 07/02/18 03:50 23:50 20:37 RBC 3.67 L Hgb 10.8 L Hct 33.0 L POC Hct MPV 7.3 L Lymph % (Auto) 15.0 L Lymph # (Auto) 1.2 L POC Sodium 115 L* Sodium POC Chloride 83 L Chloride Carbon Dioxide POC Total CO2 20 L Creatinine Glucose POC Glucose 125 H Osmolality 240 L Uric Acid Calcium POC WB Ioniz Calcium 1.07 L Phosphorus Total Protein 07/02/18 20:37 RBC Hgb Hct POC Hct MPV Lymph % (Auto) Lymph # (Auto) POC Sodium 114 L* Sodium 113 L* POC Chloride 84 L Chloride 79 L Carbon Dioxide 18 L POC Total CO2 18 L Creatinine 1.2 H Glucose 133 H POC Glucose 133 H Osmolality Uric Acid Calcium POC WB Ioniz Calcium 1.00 L Phosphorus Total Protein Meds: Medications Acetaminophen (Tylenol) 650 mg PO Q6HP PRN PRN Reason: PAIN/FEVER > 101 Last Admin: 07/04/18 16:45 Dose: 650 mg Documented by: Amlodipine Besylate (Norvasc) 5 mg PO DAILY [facility] Last Admin: 07/05/18 09:21 Dose: 5 mg Documented by: Aspirin (Aspirin) 81 mg PO BID [facility] Last Admin: 07/05/18 20:31 Dose: 81 mg Documented by: Atorvastatin Calcium (Lipitor) 20 mg PO QHS [facility] Last Admin: 07/05/18 20:31 Dose: 20 mg Documented by: Clonidine HCl (Catapres) 0.1 mg PO Q4HP PRN PRN Reason: Hypertension Last Admin: 07/04/18 09:53 Dose: 0.1 mg Documented by: Heparin Sodium (Porcine) (Heparin) 5,000 unit SQ Q12 [facility] Last Admin: 07/05/18 20:31 Dose: 5,000 unit Documented by: Hydromorphone HCl (Dilaudid) 2 mg PO Q4HP PRN PRN Reason: PAIN LEVEL 3-6 Last Admin: 07/05/18 20:31 Dose: 2 mg Documented by: Iron Carb/Multivit/Malcolm/Folic Acid (Multivitamin W/Minerals) 1 tab PO DAILY [facility] Last Admin: 07/05/18 09:21 Dose: 1 tab Documented by: Losartan Potassium (Cozaar) 100 mg PO DAILY [facility] Last Admin: 07/05/18 09:19 Dose: 100 mg Documented by: Magnesium Oxide (Magnesium Oxide) 400 mg PO DAILY [facility] Last Admin: 07/05/18 09:20 Dose: 400 mg Documented by: Metoclopramide HCl (Reglan) 5 mg IV Q6HP PRN PRN Reason: Nausea And Vomiting Last Admin: 07/03/18 09:26 Dose: 5 mg Documented by: Naloxone HCl (Narcan) 0.1 mg IV Q2MIN PRN PRN Reason: Opiate Reversal Ondansetron HCl (Zofran) 4 mg IV Q4HP PRN PRN Reason: Nausea And Vomiting Last Admin: 07/03/18 11:30 Dose: 4 mg Documented by: Pantoprazole Sodium (Protonix) 40 mg IV BIDAC [facility] Last Admin: 07/05/18 17:01 Dose: 40 mg Documented by: Polyethylene Glycol (Miralax) 17 gm PO DAILYP PRN PRN Reason: Constipation Last Admin: 07/05/18 10:37 Dose: 17 gm Documented by: Potassium/Phosphorus/Sodium (Neutra Phos) 1 packet PO BID [facility] Last Admin: 07/05/18 20:31 Dose: 1 packet Documented by: Sodium Chloride (Saline Flush) 10 ml IV Q8 [facility] Last Admin: 07/05/18 20:32 Dose: 10 ml Documented by: Sodium Chloride (Sodium Chloride) 2 gm PO BID [facility] Medical - PN: A/P - Narrative A/P Narrative: 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 -Probable contribution from HCTZ. -Discussed with nephrology -Continue to monitor sodium, we'll likely switch to sodium tablets UTI -resolved HTN -Holding HCTZ, continued with losartan. Started amlodipine for further blood pressure control -Continue with as needed clonidine Abdominal pain -Epigastric/generalized pain resolved -Suspect secondary to gastritis, continues with IV proton pump inhibitor -CT neg for any acute findings -Right lower quadrant, more superficial pain on 07/05. Possibly secondary to need for bowel care. We'll continue to monitor. No peritoneal signs. Depression/Anxiety -stable not on any meds at this time. CKD Creat is stable Nephrology following Chronic pain pain management for now. pt does not wish Percocet, use oral Dilaudid and see how she responds. DVT hep sq Full code. Medical - PN: Qual - VTE Deep Vein Thrombosis/Pulmonary Embolism Present on Admission: No
[2018-07-05] MEDS: SODIUM CHLORIDE 1 GM TABLET PO SCH (21:06)
[2018-07-06] MEDS: 0.9 % SODIUM CHLORIDE 10 ML SYRINGE IV SCH ×3 (05:15→20:45)
[2018-07-06 06:22] LABS: Basophils # (Auto) 0 K/mcL (0.0-0.3); Basophils % (Auto) 0.2 % (0.0-2.0); Eosinophils # (Auto) 0.1 K/mcL (0.0-0.7); Eosinophils % (Auto) 1.3 % (0.0-7.0); Granulocytes % (Auto) 84.5 % (38.0-78.0); Lymphocytes % (Auto) 9.1 % (15.5-49.0); Mean Cell Volume 88.7 fL (80.0-100.0); Monocytes # (Auto) 0.5 K/mcL (0.1-0.9); Monocytes % (Auto) 4.9 % (1.0-12.0); Platelet Count 332 K/mcL (140-440); RBC 3.68 M/mcL (4.00-5.20); Red Cell Distribution Width 13.5 % (11.5-14.5)
[2018-07-06 06:49] LABS: ALT/SGPT 18 U/l (0-40); Albumin 3.4 gm/dL (3.2-5.2); Albumin/Globulin Ratio 1.3 (1.0-2.3); Alkaline Phosphatase 67 U/L (39-117); Bilirubin,Direct < 0.2 mg/dL (0.0-0.3); Blood Urea Nitrogen 16 mg/dl (8-23); Gamma Glutamyl Transpeptidase 23 U/L (5-36)
[2018-07-06] MEDS: PANTOPRAZOLE 40 MG VIAL IV SCH (06:53)
[2018-07-06] MEDS: POLYETHYLENE GLYCOL 3350 17 GM PACKET PO PRN (06:53)
[2018-07-06] MEDS: HEPARIN 5,000 UNIT/ML VIAL SQ SCH ×2 (08:45→20:41)
[2018-07-06] MEDS: ASPIRIN 81 MG TAB.CHEW PO SCH ×2 (08:45→20:40)
[2018-07-06] MEDS: NEUTRA PHOS 1 PACKET PO SCH ×2 (08:45→20:40)
[2018-07-06] MEDS: amLODIPine 5 MG TABLET PO SCH (08:46)
[2018-07-06] MEDS: MULTIVIT,THER IRON,CA,FA & MIN 1 TABLET PO SCH (08:46)
[2018-07-06] MEDS: LOSARTAN 50 MG TABLET PO SCH (08:46)
[2018-07-06] MEDS: MAGNESIUM OXIDE 400 MG TABLET PO SCH (08:46)
[2018-07-06] MEDS: SODIUM CHLORIDE 1 GM TABLET PO SCH ×2 (10:26→20:38)
--- NOTE | 2018-07-06 13:21 | Nephrology Progress Note ---
Subjective Patient information: Note initiated : 07/06/18 at 1:18 pm Service Date, if different from initiated Date: [] Patient: Melody Bailey 87 y/o F admitted on 07/02/18 for abd. epigastric pain. Chief Complaint: [] Principal diagnosis: hyponatremia Interval history: NO OVERNIGHT ISSUES reported feels better no SOB, CP, edema denies confusion, focal weakness no other issues reported Pertinent ROS: as above Objective - Vital Signs Vital signs: Vital Signs Temp Pulse Resp BP Pulse Ox 07/06/18 11:49 97.3 F 16 144/65 100 07/06/18 06:46 98.5 F 16 149/56 100 07/06/18 03:52 99.1 F H 58 L 16 139/64 98 07/05/18 23:45 97.7 F 64 18 150/69 98 07/05/18 20:00 98.0 F 65 16 125/60 100 07/05/18 16:00 99.1 F H 65 16 153/63 99 Intake and Output 07/05/18 07/06/18 07/06/18 21:59 05:59 13:59 Intake Total 520 420 610 Output Total 1050 1325 325 Balance -530 -905 285 Intake: IV 160 Sodium Chloride 3% 500 ml @ 20 160 mls/hr IV ONCE ONE Rx#: [id number] Oral 360 420 610 Output: Urine Catheter Amount 1050 1325 325 Other: Meal Dinner Percent of Meal Consumed 100% Feeding Ability Independent Urine Appearance Clear Uretheral (Denney) Clear Clear Urine Color Dark Yellow Pale Uretheral (Denney) Pale Pale Urine Odor Normal Weight 140 lb Intake & Output: Intake & Output 07/05/18 07/06/18 07/06/18 21:59 05:59 13:59 Intake Total 520 420 610 Output Total 1050 1325 325 Balance -530 -905 285 Weight 140 lb Intake: IV 160 Sodium Chloride 3% 500 ml @ 20 160 mls/hr IV ONCE ONE Rx#: [id number] Oral 360 420 610 Output: Urine Catheter Amount 1050 1325 325 Other: Meal Dinner Percent of Meal Consumed 100% Feeding Ability Independent Urine Appearance Clear Uretheral (Denney) Clear Clear Urine Color Dark Yellow Pale Uretheral (Denney) Pale Pale Urine Odor Normal - General Appearance General appearance: appears started age, frail EENT: mucous membranes moist Neck: no JVD Respiratory: clear Cardiology: no rub, no edema, regular rate, regular rhythm Gastrointestinal: no tenderness Integumentary: no rash Neurologic: no focal deficit Musculoskeletal: no deformities, no erythema Psychiatric: mood/affect appropriate - Lab 07/06/18 03:30 07/06/18 03:30 Most recent lab results Calcium 8.5 mg/dl (8.6-10.4) L 07/06/18 03:30 Phosphorus 2.1 mg/dL (2.7-4.5) L 07/06/18 03:30 Magnesium 2.0 mg/dL (1.6-2.5) 07/06/18 03:30 Assessment and Plan (1) Hyponatremia Status: Acute - Narrative A/P Narrative: Patient with hypo osmolar hyponatremia with serum osm at 236, urine osm of 241, urine sodium of 54, serum uric acid of 2.6 no e/o fluid excess on exam likely excessive ADH secretion in the setting of severe pain, use of hctz and low solute intake likely contributing CXR is normal and CT abdomen with no concern of malignancy though this non co ntrast study serum sodium improved to 128 this am continue sodium chloride 2gm bid and fluid restriction to 1.4L on discharge d/c hctz patient requested to ensure high protein intake will order repeat bmp on Monday and then on mon and follow on next week will follow along CKD stage III: renal function stable and at baseline anemia: Hb stable for now urinary retention, d/c denney, ensure bladder scan done to ensure no urinary retention, if she has will need urology follow up as outpt low phos, oral replacement started ct same on discharge will follow in clinic next week Thank you for giving me an opportunity to participate in Ms Bailey's medical care, appreciate it
--- NOTE | 2018-07-06 14:31 | Internal Med Progress Note ---
Medical - PN: Subj Patient information: Note initiated : 07/06/18 at 2:30 pm Service Date, if different from initiated Date: [] Patient: Melody Bailey a 87 y/o F admitted on 07/02/18 for abd. epigastric pain. Chief Complaint: Follow-up Hyponatremia Interval history: 07/02 Ms. Bailey is a 87 year old F with h/o CKD, HTN on HCTZ, who presents to the ER for evaluation of weakness and abdominal pain x 3-4 days. The patient notes that she was seen by her PCP for urinary tract infection approximately 1 week ago, the patient was prescribed Bactrim, a few days later the patient developed abdominal pain, epigastric and esophageal burning in nature, associated with reflux and non radiating, better with food, no aggravat ing factors. The patient had loose bowel movements x 1 day. The patient has nausea and poor appetite x 1 week, the patient had diarrhea x 1 day since yesterday loose ,not watery, no blood. The patient denies any fever, chest pain, cough, she admits to being very weak and fatigued and dizzy. She has chronic neck pain, which is also being exacerbated at this time. The patient is accompanied by her , her abdominal pain had resolved at the time of my evaluation. The patient in the ER she was afebrile hemodynamically stable heart rate 77 blood pressure 160 x 90 saturating 96% room air. WBC done today was 8.4, hemoglobin 12.5 platelets 441. Sodium was 113, potassium 4.2 bicarbonate 18 chloride 79 BUN 14 creatinine 1.2 glucose 133 Pt is being admitted to the hospital for further management. 2/5 Pt seen examined, no acute issues, still has some abdominal pain, CT done without contrast, no acute issues, bladder was full, Conway placed Sodium monitored, nephrology consulted to help with sodium management. 2/6 Feels much better this morning and afternoon. No dizziness. Eating well. No abdominal pain. Sodium is slowly increased up to 118, most recent results pending. Was on and off 3% saline overnight and today Discussed with nephrology 2 Complaining of some right lower quadrant, superficial abdominal tenderness today. Working on bowel care as well. No confusion, no dizziness. Appetite remains good. Has been off and on 3% saline, currently during the day did achieve increase in her serum sodium. 2 Continues to do well, feels stronger. Appetite good. Conway is been discontinued this morning, will monitor for retention. Minimal right lower quadrant pain, working on bowel care. Currently saline locked, on salt supplements and fluid restriction. - Constitutional Vitals: Vital Signs Temp Pulse Resp BP Pulse Ox 97.3 F 58 L 16 144/65 100 07/06/18 11:49 07/06/18 03:52 07/06/18 11:49 07/06/18 11:49 07/06/18 11:49 Period Temp Pulse Resp BP Sys/Trent Pulse Ox Last 24 Hr 97.3 F-99.1 F 58-65 16-18 125-153/56-69 98-100 Intake and Output 07/06/18 07/06/18 07/06/18 05:59 13:59 21:59 Intake Total 420 610 Output Total 1325 325 Balance -905 285 Intake & Output: Intake & Output 07/06/18 07/06/18 07/06/18 05:59 13:59 21:59 Intake Total 420 610 Output Total 1325 325 Balance -905 285 Intake: Oral 420 610 Output: Urine Catheter Amount 1325 325 Other: Urine Appearance Clear Uretheral ([place]) Clear Urine Color Pale Uretheral ([place]) Pale Urine Odor Normal General appearance: cooperative, no acute distress - Respiratory Respiratory exam: Present: CTAB. Absent: accessory muscle use - Cardiovascular Cardiovascular exam: Present: normal rate and rhythm. Absent: systolic murmur - GI/Abdominal GI/Abdominal exam: Present: soft Additional comments: Very mild tenderness RLQ, no guarding or rebound, improved - Extremities Exam Extremities exam: Absent: pedal edema - Neurological Exam Neurological exam: Present: alert, oriented X3. Absent: motor sensory deficit - Psychiatric Psychiatric exam: Present: normal affect, normal mood Medical - PN: Obj Da - Labs CBC & Chem 7: 07/07/18 03:30 07/07/18 03:30 Labs: Abnormal Lab Results 07/06/18 07/06/18 07/05/18 03:30 03:30 19:03 RBC 3.68 L Hgb 11.1 L Hct 32.6 L POC Hct MPV 7.3 L Gran % 84.5 H Lymph % (Auto) 9.1 L Gran # 8.9 H Lymph # (Auto) 1.0 L POC Sodium Sodium 128 L 124 L POC Chloride Chloride Carbon Dioxide 21 L POC Total CO2 Glucose POC Glucose Uric Acid Calcium 8.5 L POC WB Ioniz Calcium Phosphorus 2.1 L Total Protein 07/05/18 07/05/18 07/05/18 14:38 08:20 03:45 RBC Hgb Hct POC Hct MPV Gran % Lymph % (Auto) Gran # Lymph # (Auto) POC Sodium Sodium 123 L 118 L* 121 L POC Chloride Chloride 89 L Carbon Dioxide POC Total CO2 Glucose POC Glucose Uric Acid 2.4 L Calcium 8.3 L POC WB Ioniz Calcium Phosphorus 1.9 L Total Protein 5.6 L 07/05/18 07/05/18 07/04/18 03:45 02:00 22:00 RBC 3.53 L Hgb 10.3 L Hct 31.6 L POC Hct MPV 7.3 L Gran % Lymph % (Auto) Gran # Lymph # (Auto) POC Sodium Sodium 118 L* 116 L* POC Chloride Chloride 85 L Carbon Dioxide 20 L POC Total CO2 Glucose 111 H POC Glucose Uric Acid Calcium 8.0 L POC WB Ioniz Calcium Phosphorus Total Protein 07/04/18 07/04/18 07/04/18 16:13 12:04 08:03 RBC Hgb Hct POC Hct MPV Gran % Lymph % (Auto) Gran # Lymph # (Auto) POC Sodium Sodium 115 L* 118 L* 120 L POC Chloride Chloride 83 L 86 L 89 L Carbon Dioxide 18 L 21 L 19 L POC Total CO2 Glucose 139 H 137 H POC Glucose Uric Acid Calcium 8.4 L 8.2 L 8.3 L POC WB Ioniz Calcium Phosphorus Total Protein 07/04/18 07/04/18 07/04/18 03:30 03:30 00:10 RBC 3.39 L Hgb 10.0 L Hct 30.5 L POC Hct MPV Gran % Lymph % (Auto) Gran # Lymph # (Auto) POC Sodium Sodium 116 L* 114 L* POC Chloride Chloride 87 L 84 L Carbon Dioxide 20 L POC Total CO2 Glucose POC Glucose Uric Acid Calcium 8.3 L 8.1 L POC WB Ioniz Calcium Phosphorus 1.9 L Total Protein 5.5 L 07/03/18 07/03/18 19:41 16:10 RBC Hgb Hct POC Hct 34.0 L MPV Gran % Lymph % (Auto) Gran # Lymph # (Auto) POC Sodium 113 L* Sodium 113 L* 111 L* POC Chloride 84 L Chloride 81 L 79 L Carbon Dioxide 21 L 19 L POC Total CO2 19 L Glucose 108 H 115 H POC Glucose 111 H Uric Acid Calcium 8.1 L 8.4 L POC WB Ioniz Calcium 1.06 L Phosphorus Total Protein Meds: Medications Acetaminophen (Tylenol) 650 mg PO Q6HP PRN PRN Reason: PAIN/FEVER > 101 Last Admin: 07/04/18 16:45 Dose: 650 mg Documented by: Amlodipine Besylate (Norvasc) 5 mg PO DAILY [facility] Last Admin: 07/06/18 08:46 Dose: 5 mg Documented by: Aspirin (Aspirin) 81 mg PO BID [facility] Last Admin: 07/06/18 08:45 Dose: 81 mg Documented by: Atorvastatin Calcium (Lipitor) 20 mg PO QHS [facility] Last Admin: 07/05/18 20:31 Dose: 20 mg Documented by: Clonidine HCl (Catapres) 0.1 mg PO Q4HP PRN PRN Reason: Hypertension Last Admin: 07/04/18 09:53 Dose: 0.1 mg Documented by: Heparin Sodium (Porcine) (Heparin) 5,000 unit SQ Q12 [facility] Last Admin: 07/06/18 08:45 Dose: 5,000 unit Documented by: Hydromorphone HCl (Dilaudid) 2 mg PO Q4HP PRN PRN Reason: PAIN LEVEL 3-6 Last Admin: 07/05/18 20:31 Dose: 2 mg Documented by: Iron Carb/Multivit/Flatonia/Folic Acid (Multivitamin W/Minerals) 1 tab PO DAILY [facility] Last Admin: 07/06/18 08:46 Dose: 1 tab Documented by: Losartan Potassium (Cozaar) 100 mg PO DAILY [facility] Last Admin: 07/06/18 08:46 Dose: 100 mg Documented by: Magnesium Oxide (Magnesium Oxide) 400 mg PO DAILY [facility] Last Admin: 07/06/18 08:46 Dose: 400 mg Documented by: Metoclopramide HCl (Reglan) 5 mg IV Q6HP PRN PRN Reason: Nausea And Vomiting Last Admin: 07/03/18 09:26 Dose: 5 mg Documented by: Naloxone HCl (Narcan) 0.1 mg IV Q2MIN PRN PRN Reason: Opiate Reversal Ondansetron HCl (Zofran) 4 mg IV Q4HP PRN PRN Reason: Nausea And Vomiting Last Admin: 07/03/18 11:30 Dose: 4 mg Documented by: Pantoprazole Sodium (Protonix) 40 mg IV BIDAC [facility] Last Admin: 07/06/18 06:53 Dose: 40 mg Documented by: Polyethylene Glycol (Miralax) 17 gm PO DAILYP PRN PRN Reason: Constipation Last Admin: 07/06/18 06:53 Dose: 17 gm Documented by: Potassium/Phosphorus/Sodium (Neutra Phos) 1 packet PO BID [facility] Last Admin: 07/06/18 08:45 Dose: 1 packet Documented by: Sodium Chloride (Saline Flush) 10 ml IV Q8 [facility] Last Admin: 07/06/18 14:12 Dose: 10 ml Documented by: Sodium Chloride (Sodium Chloride) 2 gm PO BID [facility] Last Admin: 07/06/18 10:26 Dose: 2 gm Documented by: Medical - PN: A/P - Narrative A/P Narrative: 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 -Probable contribution from HCTZ -Past 24 hrs 07/05-07/06 normalizing now on salt tablets -Discussed with nephrology -Continue to monitor sodium, continue NaCl tablets and 1400 mL fluid restriction, nephrology rec's reviewed -Likely home 07/07 with outpatient F/U per Nephro UTI -resolved HTN -Holding HCTZ, continued with losartan. Started amlodipine for further blood pressure control -Continue with as needed clonidine Abdominal pain -Epigastric/generalized pain resolved -Suspect secondary to gastritis, continues with IV proton pump inhibitor -CT neg for any acute findings -Right lower quadrant, more superficial pain on 07/05, improved 07/06. Possibly sec ondary to need for bowel care. We'll continue to monitor. No peritoneal signs. Depression/Anxiety -stable not on any meds at this time. CKD Creat is stable Nephrology following Chronic pain pain management for now. pt does not wish Percocet, use oral Dilaudid and see how she responds. DVT hep sq Full code. Medical - PN: Qual - VTE Deep Vein Thrombosis/Pulmonary Embolism Present on Admission: No
[2018-07-06] MEDS: PANTOPRAZOLE 40 MG TABLET PO SCH (17:11)
[2018-07-06] MEDS: ATORVASTATIN 20 MG TABLET PO SCH (20:40)
[2018-07-06] MEDS: HYDROmorphone 2 MG TABLET PO PRN (20:40)
[2018-07-07] MEDS: 0.9 % SODIUM CHLORIDE 10 ML SYRINGE IV SCH (04:13)
[2018-07-07 05:44] LABS: Basophils # (Auto) 0 K/mcL (0.0-0.3); Basophils % (Auto) 0.1 % (0.0-2.0); Eosinophils # (Auto) 0.2 K/mcL (0.0-0.7); Eosinophils % (Auto) 2.5 % (0.0-7.0); Granulocytes % (Auto) 76.4 % (38.0-78.0); Lymphocytes # (Auto) 1.2 K/mcL (1.5-4.8); Lymphocytes % (Auto) 13.6 % (15.5-49.0); Mean Cell Volume 90.4 fL (80.0-100.0); Monocytes # (Auto) 0.6 K/mcL (0.1-0.9); Monocytes % (Auto) 7.4 % (1.0-12.0); Platelet Count 333 K/mcL (140-440)
[2018-07-07 06:43] LABS: ALT/SGPT 24 U/l (0-40); Albumin 3.4 gm/dL (3.2-5.2); Albumin/Globulin Ratio 1.3 (1.0-2.3); Alkaline Phosphatase 70 U/L (39-117); Bilirubin,Direct < 0.2 mg/dL (0.0-0.3); Blood Urea Nitrogen 20 mg/dl (8-23); Gamma Glutamyl Transpeptidase 26 U/L (5-36); Uric Acid 3.5 mg/dL (2.5-8.0)
[2018-07-07] MEDS: amLODIPine 5 MG TABLET PO SCH (09:10)
[2018-07-07] MEDS: ASPIRIN 81 MG TAB.CHEW PO SCH (09:10)
[2018-07-07] MEDS: MAGNESIUM OXIDE 400 MG TABLET PO SCH (09:10)
[2018-07-07] MEDS: LOSARTAN 50 MG TABLET PO SCH (09:10)
[2018-07-07] MEDS: PANTOPRAZOLE 40 MG TABLET PO SCH (09:10)
[2018-07-07] MEDS: NEUTRA PHOS 1 PACKET PO SCH (09:10)
[2018-07-07] MEDS: SODIUM CHLORIDE 1 GM TABLET PO SCH (09:10)
[2018-07-07] MEDS: MULTIVIT,THER IRON,CA,FA & MIN 1 TABLET PO SCH (09:10)
[2018-07-07] MEDS: HEPARIN 5,000 UNIT/ML VIAL SQ SCH (09:11)
--- NOTE | 2018-07-07 10:27 | Discharge Summary ---
Medical - DS: Prov Patient information: Note initiated : 07/07/18 at 10:23 am Service Date, if different from initiated Date: [] Patient: Melody Bailey 87 y/o F admitted on 07/02/18 for abd. epigastric pain. Chief Complaint: [] Date of admission: 07/02/18 23:55 Discharge date: 07/07/18 Primary care physician: Vladislav Latham Consults: 07/02/18 Consult to Physician [CONS] Stat Comment: Consulting Provider: Stephanie Cadet Reason For Exam: Physician to Consult 07/03/18 10:04 Consult to Physician [CONS] Routine Comment: hyponatremia Consulting Provider: Lorie Espitia Reason For Exam: Physician to Consult Medical - DS: Meds - Discharge Medications Prescriptions: amLODIPine [Norvasc] 5 mg PO DAILY #30 tablet Losartan [Cozaar] 100 mg PO DAILY #30 tablet Sodium Chloride 2 gm PO BID #30 tablet Active and Home Medications: Home Medications coenzyme Q10 100 mg capsule 100 mg PO BID cap 12/01/14 [History Confirmed 07/02 Last Taken Unknown] polyethylene glycol 3350 17 gram/dose oral powder 17 g PO QDAY each 12/01/14 [History Confirmed 07/02/18 Last Taken Unknown] Flax Oil-[place] 3 1 cap PO QDAY 09/19/16 [History Confirmed 07/02/18 Last Taken Unknown] magnesium oxide 400 mg capsule 400 mg PO QDAY 09/19/16 [History Confirmed 07/02/18 Last Taken Unknown] multivitamin tablet 1 tab PO QDAY tab 09/19/16 [History Confirmed 07/02/18 Last Taken Unknown] salmon oil-omega-3 fatty acids 1,000 mg-200 mg capsule 1,000 cap PO QAM cap 09/19/16 [History Confirmed 07/02/18 Last Taken Unknown] aspirin 81 mg chewable tablet 81 mg PO BID tab 08/28/17 [History Confirmed 07/02/18 Last Taken Unknown] atorvastatin 20 mg tablet 20 mg PO QHS #90 tab 05/21/18 [Rx Confirmed 07/02/18 Last Taken Unknown] Ranitidine HCl [Acid Surface Boss] 150 mg PO BID 07/02/18 [History Confirmed 07/03/18 Last Taken Unknown] Losartan [Cozaar] 100 mg PO DAILY #30 tablet 07/07/18 [Rx Last Taken Unknown] Sodium Chloride 2 gm PO BID #30 tablet 07/07/18 [Rx Last Taken Unknown] amLODIPine [Norvasc] 5 mg PO DAILY #30 tablet 07/07/18 [Rx Last Taken Unknown] Medical - DS: Hosp Hospital course: Discharge diagnosis * 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 -Probable contribution from HCTZ -Nephrology recommends discontinuing hyperal thiazide, continuing losartan/amlodipine and salt tabs with advised to follow-up as outpatient on discharge * UTI-resolved * HTN-discharging on amlodipine/losartan * Abdominal pain-suspect secondary to gastritis. Resolved with PPI * Depression/Anxiety-stable not on any meds at this time. * CKD-Creat is stable. Will follow up nephrology as outpatient Brief hospital course 07/02 Ms. Bailey is a 87 year old F with h/o CKD, HTN on HCTZ, who presents to the ER for evaluation of weakness and abdominal pain x 3-4 days. The patient notes that she was seen by her PCP for urinary tract infection approximately 1 week ago, the patient was prescribed Bactrim, a few days later the patient developed abdominal pain, epigastric and esophageal burning in nature, associated with reflux and non radiating, better with food, no aggravating factors. The patient had loose bowel movements x 1 day. The patient has nausea and poor appetite x 1 week, the patient had diarrhea x 1 day since yesterday loose ,not watery, no blood. The patient denies any fever, chest pain, cough, she admits to being very weak and fatigued and dizzy. She has chronic neck pain, which is also being exacerbated at this time. The patient is accompanied by her , her abdominal pain had resolved at the time of my evaluation. The patient in the ER she was afebrile hemodynamically stable heart rate 77 blood pressure 160 x 90 saturating 96% room air. WBC done today was 8.4, hemoglobin 12.5 platelets 441. Sodium was 113, potassium 4.2 bicarbonate 18 chloride 79 BUN 14 creatinine 1.2 glucose 133 Pt is being admitted to the hospital for further management. 2/ Pt seen examined, no acute issues, still has some abdominal pain, CT done without contrast, no acute issues, bladder was full, Conway placed Sodium monitored, nephrology consulted to help with sodium management. 07/04 Feels much better this morning and afternoon. No dizziness. Eating well. No abdominal pain. Sodium is slowly increased up to 118, most recent results pending. Was on and off 3% saline overnight and today Discussed with nephrology 07/05 Complaining of some right lower quadrant, superficial abdominal tenderness today. Working on bowel care as well. No confusion, no dizziness. Appetite remains good. Has been off and on 3% saline, currently during the day did achieve increase in her serum sodium. 07/06 Continues to do well, feels stronger. Appetite good. Conway is been discontinued this morning, will monitor for retention. Minimal right lower quadrant pain, working on bowel care. Currently saline locked, on salt supplements and fluid restriction. 07/07- patient doing a lot better. Undergoing physical therapy. No overnight events. No concerns per staff. Sodium is 132. Case discussed with nephrology. Recommend discharging on amlodipine/losartan and salt tabs and also to discontinue hydrochlorthiazide. Will follow up with nephrology clinic/outpatient BMP as per nephrology Discharge diagnosis: . - Time Spent with Patient Total time spent providing and/or coordinating discharge services: Greater than 30 minutes Medical - DS: Exam - Constitutional Vitals: Vital Signs Temp Pulse Resp BP BP Pulse Ox 07/07/18 06:24 97.6 F 16 137/57 97 07/07/18 04:00 98.6 F 56 L 18 126/63 96 07/06/18 23:58 98.5 F 57 L 16 94/46 97 07/06/18 20:00 98.8 F 68 18 138/66 99 07/06/18 15:31 97.2 F 16 113/62 100 07/06/18 11:49 97.3 F 16 144/65 100 Intake and Output 07/06/18 07/07/18 07/07/18 21:59 05:59 13:59 Intake Total 240 300 Output Total 575 507 500 Balance -908 -720 -500 Intake: Oral 240 300 Output: Void Amount 575 507 500 Other: Meal Dinner Breakfast Percent of Meal Consumed 100% 100% Feeding Ability Independent Independent Urine Appearance Clear Clear Urine Color Pale Bright Yellow Bright Yellow Urine Odor Normal Normal # Voids 1 # Bowel Movements 1 Weight 138 lb 5 oz Medical - DS: Data Labs on day of discharge: Labs from last 24 hours 07/07/18 07/07/18 03:30 03:30 WBC 8.6 RBC 3.50 L Hgb 10.4 L Hct 31.6 L MCV 90.4 MCH 29.9 MCHC 33.0 RDW 14.0 Plt Count 333 MPV 7.6 Gran % 76.4 Lymph % (Auto) 13.6 L [place] % (Auto) 7.4 Eos % (Auto) 2.5 Baso % (Auto) 0.1 Gran # 6.6 Lymph # (Auto) 1.2 L [place] # (Auto) 0.6 Eos # (Auto) 0.2 Baso # (Auto) 0 Sodium 132 L Potassium 4.5 Chloride 101 Carbon Dioxide 22 Anion Gap 9.0 BUN 20 Creatinine 1.1 GFR Calculation 46 Glucose 125 H Uric Acid 3.5 Calcium 8.9 Phosphorus 2.7 Magnesium 2.2 Total Bilirubin 0.2 Direct Bilirubin < 0.2 GGT 26 AST 39 H ALT 24 Alkaline Phosphatase 70 Lactate Dehydrogenase 239 Total Protein 6.0 Albumin 3.4 Globulin 2.6 Albumin/Globulin Ratio 1.3 Triglycerides 47 Medical - DS: A/P - Patient/Caregiver Discharge Instructions Activity: increase activity as tolerated Diet: Regular Diet Additional Instructions: Follow with nephrology as scheduled Continue salt tabs as per nephrology recommendations Continue amlodipine/losartan as per nephrology recommendations Stop taking hydrochlorothiazide Return to ER if worsening weakness, confusion, shortness of breath Prescriptions: amLODIPine [Norvasc] 5 mg PO DAILY #30 tablet Losartan [Cozaar] 100 mg PO DAILY #30 tablet Sodium Chloride 2 gm PO BID #30 tablet - Follow up Plan Follow up with: Vladislav Latham PA-C [Primary Care Provider] - Lorie Espitia MD [Physician] - Disposition: Home, Self-Care Prognosis: Fair Rehab Potential: Fair I certify that the patient requires SNF services: No Overall status at discharge: patient is progressing back to baseline Medical - DS: Qual - VTE Deep Vein Thrombosis/Pulmonary Embolism Present on Admission: No
== END 2018-07-07 11:30 | disposition home or self-care (01) | DRG 644 ==
LOC: ICU 19:19 → ED 19:19 → ICU 23:55 → OBSVTOIN 23:55
PROVIDERS: ADMIT Internal Medicine; ATTEND Internal Medicine

== ENCOUNTER 2019-12-10 20:27 | Inpatient (IN) ==
--- NOTE | 2019-12-10 21:07 | Emergency Department Note ---
HPI General Chief complaint: Blood Pressure Problem Stated complaint: high blood pressure Time Seen by Provider: 12/10/19 20:47 Source: patient and family Mode of arrival: ambulatory Limitations: no limitations History of Present Illness HPI Narrative: Patient reports high blood pressure today. States that she saw her provider today and she had high blood pressure there as well. She told me that she was told to watch her blood pressure and take it at home and monitor it for the next week. She denies specific symptoms related to blood pressure. Denies current dizziness, chest pain. I asked her questions about her dizziness and she states that she has dizziness at times. Patient denies fever cough. Denies chest pain, palpations or shortness of breath. Denies swelling of extremities. States that the main concern she has that brought her here today was her elevated blood pressure. Related Data Home Medications Medication Instructions Recorded Confirmed coenzyme Q10 100 mg capsule 100 mg PO QDAY cap 09/25/18 12/10/19 polyethylene glycol 3350 17 17 g PO .qod g 12/07/18 12/10/19 gram/dose oral powder cholecalciferol (vitamin D3) 50 2,000 unit PO Q OTHER DAY cap 02/25/19 12/10/19 mcg (2,000 unit) capsule magnesium oxide 400 mg PO QDAY 02/25/19 12/10/19 aspirin 81 mg chewable tablet 81 mg PO QDAY tab 06/10/19 12/10/19 Previous Rx's Medication Instructions Recorded hydrochlorothiazide 12.5 mg tablet 12.5 mg PO BID 90 Days #180 tab 11/26/19 atorvastatin 10 mg tablet 10 mg PO QHS #90 tab 12/10/19 Allergies Allergy/AdvReac Type Severity Reaction Status Date / Time amlodipine Allergy Mild itching Verified 12/10/19 20:34 Iodinated Contrast Media AdvReac Intermediate "MADE HER Verified 12/10/19 20:34 [Iodinated Contrast Media - PASS OUT" IV Dye] sulfamethoxazole AdvReac Intermediate dyspepsia, Verified 12/10/19 20:34 [From Bactrim] hyponatremia trimethoprim [From Bactrim] AdvReac Intermediate dyspepsia Verified 12/10/19 20:34 Amoxicillin [From Augmentin] AdvReac Mild Rash Verified 12/10/19 20:34 clavulanic acid AdvReac Mild Rash Verified 07/14/20 20:34 [From Augmentin] fluticasone AdvReac Mild Rash Verified 12/10/19 20:34 [From Advair Diskus] salmeterol AdvReac Mild Rash Verified 12/10/19 20:34 [From Advair Diskus] sodium chloride AdvReac Mild upset Verified 12/10/19 20:34 stomach Review of Systems ROS ROS Narrative: Narrative: Constitutional: Denies fever and chills Eyes: Denies vision change Cardiovascular: Reports as per HPI; Denies chest pain, palpitations, edema and syncope Respiratory: Denies shortness of breath and cough Gastrointestinal: Denies abdominal pain, nausea and vomiting Genitourinary: Denies dysuria, urgency and frequency Musculoskeletal: Denies back pain and joint swelling Integumentary: Denies rash and lesions Neurological: Reports dizziness; Denies headache, weakness, numbness and confusion Psychiatric: Denies anxiety and depression Endocrine: Denies fatigue and heat or cold intolerance Hematological/Lymphatic: Denies easy bleeding, easy bruising and lymphadenopathy PFSH Narrative Patient History Narrative: Narrative: Medical/Surgical/Family History All Active Problems (Updated 12/11/19 @ 05:10 by Aureliano Torres DO) Hyponatremia (Acute) Hypokalemia (Acute) Cramps, muscle, general (Acute) Hyponatremia (Acute) Dizziness (Acute) Epigastric pain (Acute) Degenerative joint disease of cervical and lumbar spine (Acute) Osteoarthritis of fingers of hands, bilateral (Acute) History of polymyalgia rheumatica (Chronic) Hypertensive renal disease (Chronic) History of lumbar laminectomy (Chronic) History of hysterectomy (Chronic) History of colonoscopy (Chronic 08/17/16) History of cataract surgery (Chronic) History of (Chronic) Vitreous degeneration (Chronic) Vitamin D deficiency (Chronic) Renal osteodystrophy (Chronic) PVC's (premature ventricular contractions) (Chronic) Pseudophakia (Chronic) Prediabetes (Chronic) Partial optic atrophy (Chronic) Palpitations (Chronic) Osteopenia (Chronic) Osteoarthrosis (Chronic) Macular degeneration (Chronic) Keratoconjunctivitis sicca not specified as Sjogren's (Chronic) Hypertension, essential (Chronic) Hyperlipidemia (Chronic) Hypercalcemia (Chronic) Head injury (Chronic) Diverticulosis of colon (Chronic) Chronic kidney disease (CKD), stage III (moderate) (Chronic) Anemia (Chronic) Personal history of allergy to radiographic dye (Chronic) Allergic rhinitis (Chronic) Medical History Allergic rhinitis (Chronic) Anemia (Chronic) Anxiety disorder (Resolved) Back pain (Resolved) Mahajan's palsy (Resolved) Benign paroxysmal positional vertigo (Inactive) Chronic kidney disease (CKD), stage III (moderate) (Chronic) Depression (Resolved) Diverticulosis of colon (Chronic) Gastroesophageal reflux (Inactive) Head injury (Chronic) 1996 Hip pain, bilateral (Resolved) History of polymyalgia rheumatica (Chronic) Hypercalcemia (Chronic) calcium normal PTH, vitamin D at goal ct calcium carbonate with vitamin D but cut back to one a day Hyperlipidemia (Chronic) Hypertension, essential (Chronic) Hypertensive renal disease (Chronic) Hypothyroidism, acquired (Ruled-out) Keratoconjunctivitis sicca not specified as Sjogren's (Chronic) Left hip pain (Resolved) Macular degeneration (Chronic) Obesity (Resolved) Osteoarthrosis (Chronic) Osteopenia (Chronic) Palpitations (Chronic) Paresthesia and pain of both upper extremities (Inactive) Partial optic atrophy (Chronic) Personal history of allergy to radiographic dye (Chronic) PMR (polymyalgia rheumatica) (Inactive) Polymyalgia (Inactive) Prediabetes (Chronic) Prediabetes, Diabetes Mellitus Pseudophakia (Chronic) PVC's (premature ventricular contractions) (Chronic) Renal osteodystrophy (Chronic) 10/06/2011 Trochanteric bursitis of left hip (Resolved) Vitamin D deficiency (Chronic) 10/06/2011 Vitreous degeneration (Chronic) Surgical History History of (Chronic) 1970 History of cataract surgery (Chronic) 1994 and 1995 History of colonoscopy (Chronic 08/17/16) 2010 History of hysterectomy (Chronic) 1970; Partial with one ovary left History of lumbar laminectomy (Chronic) 2005; Lumbar disc surgery. Laminectomy in [place]. Family History Unknown Disorder of joint Social History Smoking Status: Never smoker Alcohol Intake Frequency: does not drink Substance Use: does not use Exam Narrative Narrative: Narrative: General Limitations: no limitations General appearance: alert and in no apparent distress Head Head: atraumatic and normocephalic Eye Eye: Present normal appearance, PERRL and EOMI; Absent scleral icterus and conjunctival injection ENT ENT: Present normal oropharynx and mucous membranes moist Neck Neck: Present trachea midline; Absent lymphadenopathy and thyromegaly Chest Chest: Present symmetric chest wall rise Respiratory Respiratory: Present normal lung sounds bilaterally; Absent respiratory distress, wheezes, stridor, accessory muscle use and prolonged expiratory phase Cardiovascular Cardiovascular: Present regular rate and normal rhythm; Absent systolic murmur and diastolic murmur Adbominal Abdominal: Present soft; Absent distention, tenderness, guarding, rebound, rigidity, organomegaly and mass Extremities Extremities: Absent pedal edema, pretibial edema and calf tenderness Back Back: Absent CVA tenderness (R), CVA tenderness (L) and spinous process tenderness Neurological Neurological: Present alert and oriented X3 Psychiatric Psychiatric: Present normal affect and normal mood Skin Skin: Present warm and dry Course Course Course Narrative: I discussed this case with Dr. Torres for advice and advisement. Will obtain a CMP and a CBC. The Chem-8 showed a potassium of 2.9. Will treat with oral medication. Will wait for CMP results and more specific potassium numbers before discharge. Patient will be treated with oral potassium and lisinopril 2.5. Will also be prescribed this medication to help prevent potassium loss. This medication will also assist in renal protection. Vital Signs Vital signs: Vital Signs Temperature 98.7 F 12/10/19 20:27 Pulse Rate 78 12/10/19 20:27 Respiratory Rate 15 12/10/19 20:27 Blood Pressure 184/84 12/10/19 20:27 Pulse Oximetry (%) 99 12/10/19 20:27 Temperature 98.4 F 12/12/19 08:01 Pulse Rate 44 L 12/12/19 02:00 Respiratory Rate 18 12/12/19 08:01 Blood Pressure 135/92 12/12/19 08:01 Pulse Oximetry (%) 100 12/12/19 06:01 [facility] MDM Narrative Medical decision making narrative: Narrative: Lab Data Result diagrams: 12/12/19 04:53 12/12/19 04:53 Labs: Lab Results 12/10/19 12/10/19 12/10/19 Range/Units 21:18 21:18 21:18 WBC 8.5 (4.50-11.00) K/mcL RBC 3.87 (3.59-5.38) M/mcL Hgb 11.5 (11.2-15.7) g/dL Hct 33.0 L (34.1-44.9) % POC Hct 38.0 (36.0-48.0) % MCV 85.3 (80.0-100.0) fL MCH 29.7 (26.0-34.0) pg MCHC 34.8 (31.0-36.0) g/dL RDW 13.6 (11.5-14.5) % Plt Count 333 (140-440) K/mcL MPV 9.4 (7.4-10.4) fL Gran % 66.1 (38.0-78.0) % Lymph % (Auto) 20.3 (15.5-49.0) % Branch % (Auto) 8.5 (1.0-12.0) % Eos % (Auto) 4.3 (0.0-7.0) % Baso % (Auto) 0.8 (0.0-2.0) % Gran # 5.62 (1.80-8.00) K/mcL Lymph # (Auto) 1.73 (1.50-4.80) K/mcL Branch # (Auto) 0.72 (0.10-0.90) K/mcL Eos # (Auto) 0.37 (0.00-0.70) K/mcL Baso # (Auto) 0.07 (0.00-0.30) K/mcL POC Sodium 121 L (133-145) mmol/L Sodium 119 L* (133-145) mmol/L POC Potassium 2.9 L* (3.3-5.1) mmol/L Potassium 3.0 L (3.3-5.1) mmol/L POC Chloride 85 L (96-108) mmol/L Chloride 81 L (96-108) mmol/L Carbon Dioxide 21 L (22-30) mmol/L POC Total CO2 22 (22-30) mmol/L Anion Gap 17.0 H (8-16) POC BUN 22 (8-23) mg/dl BUN 22 (8-23) mg/dl Creatinine 0.9 (0.6-1.1) mg/dl POC Creatinine 0.8 (0.6-1.1) mg/dl GFR Calculation 57 Glucose 113 H (70-105) mg/dL POC Glucose 113 H (70-105) mg/dL Calcium 8.8 (8.6-10.4) mg/dl POC WB Ioniz Calcium 1.07 L (1.16-1.32) mmol/L Magnesium (1.6-2.5) mg/dL Total Bilirubin 0.3 (0.0-1.0) mg/dL AST 34 (0-37) U/l ALT 21 (0-40) U/l Alkaline Phosphatase 79 (39-117) U/L Total Protein 6.8 (5.9-8.4) gm/dL Albumin 4.1 (3.2-5.2) gm/dL Globulin 2.7 (2.2-3.7) gm/dL Albumin/Globulin Ratio 1.5 (1.0-2.3) Urine Color Urine Appearance Urine pH (5.0-9.0) Ur Specific [place] (1.000-1.035) Urine Protein (NEG) mg/dL Urine Glucose (UA) (NEG) mg/dL Urine Ketones (NEG) mg/dL Urine Occult Blood (<0.03) mg/dL Urine Nitrate (NEG) Urine Bilirubin (NEG) mg/dL Urine Urobilinogen (NEG) mg/dL Ur Leukocyte Esterase (NEG) /uL Urine RBC (0-1) /hpf Urine WBC (0-4) /hpf Ur Squamous Epith Cells (0-4) /hpf Urine Bacteria (0) /hpf Ur Culture Indicated? Urine Osmolality (80-1000) mOsm/kg 12/10/19 12/10/19 12/10/19 Range/Units 21:18 21:43 22:05 WBC (4.50-11.00) K/mcL RBC (3.59-5.38) M/mcL Hgb (11.2-15.7) g/dL Hct (34.1-44.9) % POC Hct (36.0-48.0) % MCV (80.0-100.0) fL MCH (26.0-34.0) pg MCHC (31.0-36.0) g/dL RDW (11.5-14.5) % Plt Count (140-440) K/mcL MPV (7.4-10.4) fL Gran % (38.0-78.0) % Lymph % (Auto) (15.5-49.0) % Branch % (Auto) (1.0-12.0) % Eos % (Auto) (0.0-7.0) % Baso % (Auto) (0.0-2.0) % Gran # (1.80-8.00) K/mcL Lymph # (Auto) (1.50-4.80) K/mcL Branch # (Auto) (0.10-0.90) K/mcL Eos # (Auto) (0.00-0.70) K/mcL Baso # (Auto) (0.00-0.30) K/mcL POC Sodium (133-145) mmol/L Sodium (133-145) mmol/L POC Potassium (3.3-5.1) mmol/L Potassium 3.0 L (3.3-5.1) mmol/L POC Chloride (96-108) mmol/L Chloride (96-108) mmol/L Carbon Dioxide (22-30) mmol/L POC Total CO2 (22-30) mmol/L Anion Gap (8-16) POC BUN (8-23) mg/dl BUN (8-23) mg/dl Creatinine (0.6-1.1) mg/dl POC Creatinine (0.6-1.1) mg/dl GFR Calculation Glucose (70-105) mg/dL POC Glucose (70-105) mg/dL Calcium (8.6-10.4) mg/dl POC WB Ioniz Calcium (1.16-1.32) mmol/L Magnesium 1.7 (1.6-2.5) mg/dL Total Bilirubin (0.0-1.0) mg/dL AST (0-37) U/l ALT (0-40) U/l Alkaline Phosphatase (39-117) U/L Total Protein (5.9-8.4) gm/dL Albumin (3.2-5.2) gm/dL Globulin (2.2-3.7) gm/dL Albumin/Globulin Ratio (1.0-2.3) Urine Color Straw Urine Appearance Clear Urine pH 7.0 (5.0-9.0) Ur Specific [place] 1.006 (1.000-1.035) Urine Protein Neg (NEG) mg/dL Urine Glucose (UA) Negative (NEG) mg/dL Urine Ketones 5/tr A (NEG) mg/dL Urine Occult Blood Neg (<0.03) mg/dL Urine Nitrate Neg (NEG) Urine Bilirubin Neg (NEG) mg/dL Urine Urobilinogen Neg (NEG) mg/dL Ur Leukocyte Esterase Neg (NEG) /uL Urine RBC 1 (0-1) /hpf Urine WBC 1 (0-4) /hpf Ur Squamous Epith Cells 0 (0-4) /hpf Urine Bacteria 0 (0) /hpf Ur Culture Indicated? No Urine Osmolality (80-1000) mOsm/kg 12/10/19 12/11/19 Range/Units 22:05 05:30 WBC (4.50-11.00) K/mcL RBC (3.59-5.38) M/mcL Hgb (11.2-15.7) g/dL Hct (34.1-44.9) % POC Hct (36.0-48.0) % MCV (80.0-100.0) fL MCH (26.0-34.0) pg MCHC (31.0-36.0) g/dL RDW (11.5-14.5) % Plt Count (140-440) K/mcL MPV (7.4-10.4) fL Gran % (38.0-78.0) % Lymph % (Auto) (15.5-49.0) % Branch % (Auto) (1.0-12.0) % Eos % (Auto) (0.0-7.0) % Baso % (Auto) (0.0-2.0) % Gran # (1.80-8.00) K/mcL Lymph # (Auto) (1.50-4.80) K/mcL Branch # (Auto) (0.10-0.90) K/mcL Eos # (Auto) (0.00-0.70) K/mcL Baso # (Auto) (0.00-0.30) K/mcL POC Sodium (133-145) mmol/L Sodium 119 L* (133-145) mmol/L POC Potassium (3.3-5.1) mmol/L Potassium 3.2 L (3.3-5.1) mmol/L POC Chloride (96-108) mmol/L Chloride 84 L (96-108) mmol/L Carbon Dioxide 20 L (22-30) mmol/L POC Total CO2 (22-30) mmol/L Anion Gap 15.0 (8-16) POC BUN (8-23) mg/dl BUN 16 (8-23) mg/dl Creatinine 0.8 (0.6-1.1) mg/dl POC Creatinine (0.6-1.1) mg/dl GFR Calculation 66 Glucose 144 H (70-105) mg/dL POC Glucose (70-105) mg/dL Calcium 8.6 (8.6-10.4) mg/dl POC WB Ioniz Calcium (1.16-1.32) mmol/L Magnesium (1.6-2.5) mg/dL Total Bilirubin (0.0-1.0) mg/dL AST (0-37) U/l ALT (0-40) U/l Alkaline Phosphatase (39-117) U/L Total Protein (5.9-8.4) gm/dL Albumin (3.2-5.2) gm/dL Globulin (2.2-3.7) gm/dL Albumin/Globulin Ratio (1.0-2.3) Urine Color Urine Appearance Urine pH (5.0-9.0) Ur Specific [place] (1.000-1.035) Urine Protein (NEG) mg/dL Urine Glucose (UA) (NEG) mg/dL Urine Ketones (NEG) mg/dL Urine Occult Blood (<0.03) mg/dL Urine Nitrate (NEG) Urine Bilirubin (NEG) mg/dL Urine Urobilinogen (NEG) mg/dL Ur Leukocyte Esterase (NEG) /uL Urine RBC (0-1) /hpf Urine WBC (0-4) /hpf Ur Squamous Epith Cells (0-4) /hpf Urine Bacteria (0) /hpf Ur Culture Indicated? Urine Osmolality 252 (80-1000) mOsm/kg Discharge Plan Patient/Caregiver Discharge Instructions Pt seen by [employer]/PA only: No Clinical Impression: Hyponatremia, Hypokalemia, Cramps, muscle, general Patient Disposition: Xfer As Inpt ([facility]) Discharge Date/Time: 12/11/19 06:44
[2019-12-10 21:31] LABS: POC Blood Urea Nitrogen 22 mg/dl (8-23); POC CO2 22 mmol/L (22-30); POC Calcium, Ionized 1.07 mmol/L (1.16-1.32); POC Chloride 85 mmol/L (96-108); POC Creatinine 0.8 mg/dl (0.6-1.1); POC Glucose, Random 113 mg/dL (70-105); POC Potassium 2.9 mmol/L (3.3-5.1); POC Sodium 121 mmol/L (133-145)
[2019-12-10] MEDS ORDERED: LISINOPRIL 2.5 MG TABLET PO ONE (21:41)
[2019-12-10] MEDS ORDERED: POTASSIUM CHLORIDE 20 MEQ TABLET PO ONE (21:41)
[2019-12-10 22:11] LABS: Basophils # (Auto) 0.07 K/mcL (0.00-0.30); Basophils % (Auto) 0.8 % (0.0-2.0); Eosinophils # (Auto) 0.37 K/mcL (0.00-0.70); Eosinophils % (Auto) 4.3 % (0.0-7.0); Granulocytes % (Auto) 66.1 % (38.0-78.0); Hemoglobin 11.5 g/dL (11.2-15.7); Lymphocytes # (Auto) 1.73 K/mcL (1.50-4.80); Lymphocytes % (Auto) 20.3 % (15.5-49.0); Mean Cell Volume 85.3 fL (80.0-100.0); Mean Corpuscular HGB Conc 34.8 g/dL (31.0-36.0); Mean Platelet Volume 9.4 fL (7.4-10.4); Monocytes # (Auto) 0.72 K/mcL (0.10-0.90); Monocytes % (Auto) 8.5 % (1.0-12.0); Platelet Count 333 K/mcL (140-440); RBC 3.87 M/mcL (3.59-5.38); Red Cell Distribution Width 13.6 % (11.5-14.5); WBC 8.5 K/mcL (4.50-11.00)
[2019-12-10 22:34] LABS: ALT/SGPT 21 U/l (0-40); AST/SGOT 34 U/l (0-37); Albumin 4.1 gm/dL (3.2-5.2); Albumin/Globulin Ratio 1.5 (1.0-2.3); Alkaline Phosphatase 79 U/L (39-117); Bilirubin,Total 0.3 mg/dL (0.0-1.0); Blood Urea Nitrogen 22 mg/dl (8-23); Calcium 8.8 mg/dl (8.6-10.4); Carbon Dioxide 21 mmol/L (22-30); Globulin 2.7 gm/dL (2.2-3.7); Glomerular Filtration Rate 57; Glucose 113 mg/dL (70-105)
[2019-12-10 22:36] LABS: Chloride 81 mmol/L (96-108)
[2019-12-10] MEDS ORDERED: POTASSIUM CHLORIDE 20 MEQ in DEXTROSE 5% IN WATER 250 ML IV ONE (22:55)
[2019-12-10] MEDS ORDERED: ACETAMINOPHEN 325 MG TABLET PO ONE (22:56)
[2019-12-10] MEDS ORDERED: METHOCARBAMOL 1,000 MG/10 ML VIAL IV ONE (23:09)
[2019-12-10] MEDS: HYDROmorphone 0.5 MG/0.5 ML SYRINGE IV PRN (23:16)
[2019-12-10 23:27] LABS: Appearance,Urine CLEAR; Bacteria,Urine 0 /hpf (0); Bilirubin,Urine NEG (NEG); Color,Urine STRAW; Culture Indicated,Urine NO; Glucose,Urine (UA) NEGATIVE (NEG); Ketones,Urine 5/TR mg/dL (NEG); Leukocyte Esterase,Urine NEG /uL (NEG); Nitrate,Urine NEG (NEG); Protein,Urine NEG (NEG); Specific Gravity,Urine 1.006 (1.000-1.035); Urine Blood NEG mg/dL (<0.03); Urine RBC 1 /hpf (0-1); Urine Squamous Epithelial Cell 0 /hpf (0-4); Urine WBC 1 /hpf (0-4); Urobilinogen,Urine NEG (NEG)
[2019-12-11] MEDS: HYDROmorphone 0.5 MG/0.5 ML SYRINGE IV PRN ×2 (00:18→02:05)
[2019-12-11] MEDS ORDERED: ONDANSETRON 4 MG/2 ML VIAL IV ONE ×2 (01:03→04:27)
[2019-12-11] MEDS ORDERED: ONDANSETRON 4 MG/2 ML VIAL ONE (01:09)
[2019-12-11] MEDS ORDERED: 0.9 % SODIUM CHLORIDE 1,000 ML IV ONE (03:07)
--- NOTE | 2019-12-11 04:56 | Emergency Department Note ---
HPI General Chief complaint: Blood Pressure Problem Stated complaint: high blood pressure Time Seen by Provider: 12/10/19 20:47 Source: patient and family Mode of arrival: ambulatory Limitations: no limitations History of Present Illness HPI Narrative: See history and physical dictated by Benjamín Jefferson, physician bryce head. Patient here because of her blood pressure. Was given some potassium as well as lisinopril 2.5 and this is helped her blood pressure. Patient began to develop rather severe cramping pains that involved her toes, ankles/calves, etc. Originally it seemed to be centered in her arms bilaterally and was quite severe and included some cramping into her hands. Her who is a good historian reports that this was very unusual for her and he has not seen around this much pain in 35 years. Patient's repeat CMP demonstrates again low sodium at 119. Chloride 81. Other is unremarkable. Related Data Home Medications Medication Instructions Recorded Confirmed vits 75-iron 28 mg-folic pkg PO each 07/12/18 12/10/19 acid 800 mcg-omega3 440 mg oral pack coenzyme Q10 100 mg capsule 100 mg PO QDAY cap 09/25/18 12/10/19 polyethylene glycol 3350 17 17 g PO .qod g 12/07/18 12/10/19 gram/dose oral powder cholecalciferol (vitamin D3) 50 2,000 unit PO Q OTHER DAY cap 02/25/19 12/10/19 mcg (2,000 unit) capsule magnesium oxide 400 mg PO QDAY 02/25/19 12/10/19 aspirin 81 mg chewable tablet 81 mg PO QDAY tab 06/10/19 12/10/19 Previous Rx's Medication Instructions Recorded hydrochlorothiazide 12.5 mg tablet 12.5 mg PO BID 90 Days #180 tab 11/26/19 atorvastatin 10 mg tablet 10 mg PO QHS #90 tab 12/10/19 Allergies Allergy/AdvReac Type Severity Reaction Status Date / Time amlodipine Allergy Mild itching Verified 12/10/19 20:34 Iodinated Contrast Media AdvReac Intermediate "MADE HER Verified 12/10/19 20:34 [Iodinated Contrast Media - PASS OUT" IV Dye] sulfamethoxazole AdvReac Intermediate dyspepsia, Verified 12/10/19 20:34 [From Bactrim] hyponatremia trimethoprim [From Bactrim] AdvReac Intermediate dyspepsia Verified 12/10/19 20:34 Amoxicillin [From Augmentin] AdvReac Mild Rash Verified 12/10/19 20:34 clavulanic acid AdvReac Mild Rash Verified 12/10/19 20:34 [From Augmentin] fluticasone AdvReac Mild Rash Verified 12/10/19 20:34 [From Advair Diskus] salmeterol AdvReac Mild Rash Verified 12/10/19 20:34 [From Advair Diskus] sodium chloride AdvReac Mild upset Verified 12/10/19 20:34 stomach Review of Systems ROS ROS Narrative: Narrative: Cardiovascular: Reports as per HPI; Denies chest pain, palpitations, edema and syncope Neurological: Reports dizziness; Denies headache, weakness, numbness and confusion PFSH Narrative Patient History Narrative: Narrative: Medical/Surgical/Family History All Active Problems (Updated 12/11/19 @ 05:10 by Aureliano Torres DO) Hyponatremia (Acute) Hypokalemia (Acute) Cramps, muscle, general (Acute) Hyponatremia (Acute) Dizziness (Acute) Epigastric pain (Acute) Degenerative joint disease of cervical and lumbar spine (Acute) Osteoarthritis of fingers of hands, bilateral (Acute) History of polymyalgia rheumatica (Chronic) Hypertensive renal disease (Chronic) History of lumbar laminectomy (Chronic) History of hysterectomy (Chronic) History of colonoscopy (Chronic 08/17/16) History of cataract surgery (Chronic) History of (Chronic) Vitreous degeneration (Chronic) Vitamin D deficiency (Chronic) Renal osteodystrophy (Chronic) PVC's (premature ventricular contractions) (Chronic) Pseudophakia (Chronic) Prediabetes (Chronic) Partial optic atrophy (Chronic) Palpitations (Chronic) Osteopenia (Chronic) Osteoarthrosis (Chronic) Macular degeneration (Chronic) Keratoconjunctivitis sicca not specified as Sjogren's (Chronic) Hypertension, essential (Chronic) Hyperlipidemia (Chronic) Hypercalcemia (Chronic) Head injury (Chronic) Diverticulosis of colon (Chronic) Chronic kidney disease (CKD), stage III (moderate) (Chronic) Anemia (Chronic) Personal history of allergy to radiographic dye (Chronic) Allergic rhinitis (Chronic) Medical History Allergic rhinitis (Chronic) Anemia (Chronic) Anxiety disorder (Resolved) Back pain (Resolved) Mahajan's palsy (Resolved) Benign paroxysmal positional vertigo (Inactive) Chronic kidney disease (CKD), stage III (moderate) (Chronic) Depression (Resolved) Diverticulosis of colon (Chronic) Gastroesophageal reflux (Inactive) Head injury (Chronic) 1995 Hip pain, bilateral (Resolved) History of polymyalgia rheumatica (Chronic) Hypercalcemia (Chronic) calcium normal PTH, vitamin D at goal ct calcium carbonate with vitamin D but cut back to one a day Hyperlipidemia (Chronic) Hypertension, essential (Chronic) Hypertensive renal disease (Chronic) Hypothyroidism, acquired (Ruled-out) Keratoconjunctivitis sicca not specified as Sjogren's (Chronic) Left hip pain (Resolved) Macular degeneration (Chronic) Obesity (Resolved) Osteoarthrosis (Chronic) Osteopenia (Chronic) Palpitations (Chronic) Paresthesia and pain of both upper extremities (Inactive) Partial optic atrophy (Chronic) Personal history of allergy to radiographic dye (Chronic) PMR (polymyalgia rheumatica) (Inactive) Polymyalgia (Inactive) Prediabetes (Chronic) Prediabetes, Diabetes Mellitus Pseudophakia (Chronic) PVC's (premature ventricular contractions) (Chronic) Renal osteodystrophy (Chronic) 10/06/2011 Trochanteric bursitis of left hip (Resolved) Vitamin D deficiency (Chronic) 10/06/2011 Vitreous degeneration (Chronic) Surgical History History of (Chronic) 1970 History of cataract surgery (Chronic) 1994 and 1995 History of colonoscopy (Chronic 08/17/16) 2009 History of hysterectomy (Chronic) 1970; Partial with one ovary left History of lumbar laminectomy (Chronic) 2005; Lumbar disc surgery. Laminectomy in [place]. Family History Unknown Disorder of joint Social History Smoking Status: Never smoker Alcohol Intake Frequency: does not drink Substance Use: does not use Exam Narrative Narrative: General: Patient mostly resting with her eyes closed but with muscle cramps or spasms or pains tightens up with some degrees of consternation and grimacing. She moves all extremities. All extremities are pink and unremarkable in general appearance. Neck: No lymphadenopathy or thyromegaly Extremities no edema or cyanosis or calf tenderness. Moves all extremities e asily and well. Psych: Somewhat serious and mildly limited eye contact but could be her amount of sleepiness. Is pleasant and cooperative. No shakiness noted. General Limitations: no limitations General appearance: alert and in no apparent distress Head Head: atraumatic and normocephalic Eye Eye: Present EOMI Neck Neck: Present full ROM; Absent meningismus Chest Chest: Present symmetric chest wall rise Respiratory Respiratory: Present normal lung sounds bilaterally; Absent respiratory distress, rales/crackles, accessory muscle use and decreased breath sounds Cardiovascular Cardiovascular: Present regular rate and normal rhythm; Absent systolic murmur and diastolic murmur Adbominal Abdominal: Present soft; Absent distention, tenderness, guarding, rebound, rigidity, organomegaly and mass Neurological Neurological: Present other (Quite sleepy after medications for pain.) Psychiatric Psychiatric: Present agitated, serious, poor eye contact and polite Skin Skin: Present warm and dry Course Vital Signs Vital signs: Vital Signs Temperature 98.7 F 12/10/19 20:27 Pulse Rate 78 12/10/19 20:27 Respiratory Rate 15 12/10/19 20:27 Blood Pressure 184/84 12/10/19 20:27 Pulse Oximetry (%) 99 12/10/19 20:27 Temperature 98.7 F 12/10/19 20:27 Pulse Rate 63 12/11/19 04:31 Respiratory Rate 11 L 12/11/19 04:31 Blood Pressure 150/81 12/11/19 04:31 Pulse Oximetry (%) 97 12/11/19 04:31 [facility] MDM Narrative Medical decision making narrative: Hyponatremia and hypokalemia now with severe muscle cramping. IV fluids given to try to improve this but it does not seem to fully have helped. She has had intermittent nausea and vomiting probably from the narcotics. 4:19 AM - Because it has required multiple doses and she has remained with these challenges and problems, and has been unable to care for her until these severe pains and cramps resolve, I spoke with Dr. Cosby, hospitalist, who is willing to have patient be admitted and to follow-up. Will add magnesium from labs already drawn. Normal saline at 75 cc/h and repeat labs every 4 hours. Lab Data Result diagrams: 12/10/19 21:18 12/10/19 21:43 Labs: Lab Results 12/10/19 12/10/1912/09/20 Range/Units 21:18 21:18 21:18 WBC 8.5 (4.50-11.00) K/mcL RBC 3.87 (3.59-5.38) M/mcL Hgb 11.5 (11.2-15.7) g/dL Hct 33.0 L (34.1-44.9) % POC Hct 38.0 (36.0-48.0) % MCV 85.3 (80.0-100.0) fL MCH 29.7 (26.0-34.0) pg MCHC 34.8 (31.0-36.0) g/dL RDW 13.6 (11.5-14.5) % Plt Count 333 (140-440) K/mcL MPV 9.4 (7.4-10.4) fL Gran % 66.1 (38.0-78.0) % Lymph % (Auto) 20.3 (15.5-49.0) % [place] % (Auto) 8.5 (1.0-12.0) % Eos % (Auto) 4.3 (0.0-7.0) % Baso % (Auto) 0.8 (0.0-2.0) % Gran # 5.62 (1.80-8.00) K/mcL Lymph # (Auto) 1.73 (1.50-4.80) K/mcL [place] # (Auto) 0.72 (0.10-0.90) K/mcL Eos # (Auto) 0.37 (0.00-0.70) K/mcL Baso # (Auto) 0.07 (0.00-0.30) K/mcL POC Sodium 121 L (133-145) mmol/L Sodium 119 L* (133-145) mmol/L POC Potassium 2.9 L* (3.3-5.1) mmol/L Potassium 3.0 L (3.3-5.1) mmol/L POC Chloride 85 L (96-108) mmol/L Chloride 81 L (96-108) mmol/L Carbon Dioxide 21 L (22-30) mmol/L POC Total CO2 22 (22-30) mmol/L Anion Gap 17.0 H (8-16) POC BUN 22 (8-23) mg/dl BUN 22 (8-23) mg/dl Creatinine 0.9 (0.6-1.1) mg/dl POC Creatinine 0.8 (0.6-1.1) mg/dl GFR Calculation 57 Glucose 113 H (70-105) mg/dL POC Glucose 113 H (70-105) mg/dL Calcium 8.8 (8.6-10.4) mg/dl POC WB Ioniz Calcium 1.07 L (1.16-1.32) mmol/L Total Bilirubin 0.3 (0.0-1.0) mg/dL AST 34 (0-37) U/l ALT 21 (0-40) U/l Alkaline Phosphatase 79 (39-117) U/L Total Protein 6.8 (5.9-8.4) gm/dL Albumin 4.1 (3.2-5.2) gm/dL Globulin 2.7 (2.2-3.7) gm/dL Albumin/Globulin Ratio 1.5 (1.0-2.3) Urine Color Urine Appearance Urine pH (5.0-9.0) Ur Specific [place] (1.000-1.035) Urine Protein (NEG) mg/dL Urine Glucose (UA) (NEG) mg/dL Urine Ketones (NEG) mg/dL Urine Occult Blood (<0.03) mg/dL Urine Nitrate (NEG) Urine Bilirubin (NEG) mg/dL Urine Urobilinogen (NEG) mg/dL Ur Leukocyte Esterase (NEG) /uL Urine RBC (0-1) /hpf Urine WBC (0-4) /hpf Ur Squamous Epith Cells (0-4) /hpf Urine Bacteria (0) /hpf Ur Culture Indicated? 12/10/19 12/10/19 Range/Units 21:43 22:05 WBC (4.50-11.00) K/mcL RBC (3.59-5.38) M/mcL Hgb (11.2-15.7) g/dL Hct (34.1-44.9) % POC Hct (36.0-48.0) % MCV (80.0-100.0) fL MCH (26.0-34.0) pg MCHC (31.0-36.0) g/dL RDW (11.5-14.5) % Plt Count (140-440) K/mcL MPV (7.4-10.4) fL Gran % (38.0-78.0) % Lymph % (Auto) (15.5-49.0) % [place] % (Auto) (1.0-12.0) % Eos % (Auto) (0.0-7.0) % Baso % (Auto) (0.0-2.0) % Gran # (1.80-8.00) K/mcL Lymph # (Auto) (1.50-4.80) K/mcL [place] # (Auto) (0.10-0.90) K/mcL Eos # (Auto) (0.00-0.70) K/mcL Baso # (Auto) (0.00-0.30) K/mcL POC Sodium (133-145) mmol/L Sodium (133-145) mmol/L POC Potassium (3.3-5.1) mmol/L Potassium 3.0 L (3.3-5.1) mmol/L POC Chloride (96-108) mmol/L Chloride (96-108) mmol/L Carbon Dioxide (22-30) mmol/L POC Total CO2 (22-30) mmol/L Anion Gap (8-16) POC BUN (8-23) mg/dl BUN (8-23) mg/dl Creatinine (0.6-1.1) mg/dl POC Creatinine (0.6-1.1) mg/dl GFR Calculation Glucose (70-105) mg/dL POC Glucose (70-105) mg/dL Calcium (8.6-10.4) mg/dl POC WB Ioniz Calcium (1.16-1.32) mmol/L Total Bilirubin (0.0-1.0) mg/dL AST (0-37) U/l ALT (0-40) U/l Alkaline Phosphatase (39-117) U/L Total Protein (5.9-8.4) gm/dL Albumin (3.2-5.2) gm/dL Globulin (2.2-3.7) gm/dL Albumin/Globulin Ratio (1.0-2.3) Urine Color Straw Urine Appearance Clear Urine pH 7.0 (5.0-9.0) Ur Specific [place] 1.006 (1.000-1.035) Urine Protein Neg (NEG) mg/dL Urine Glucose (UA) Negative (NEG) mg/dL Urine Ketones 5/tr A (NEG) mg/dL Urine Occult Blood Neg (<0.03) mg/dL Urine Nitrate Neg (NEG) Urine Bilirubin Neg (NEG) mg/dL Urine Urobilinogen Neg (NEG) mg/dL Ur Leukocyte Esterase Neg (NEG) /uL Urine RBC 1 (0-1) /hpf Urine WBC 1 (0-4) /hpf Ur Squamous Epith Cells 0 (0-4) /hpf Urine Bacteria 0 (0) /hpf Ur Culture Indicated? No Discharge Plan Patient/Caregiver Discharge Instructions Pt seen by CELL[employer] TEACHER/PA only: No Clinical Impression: Hyponatremia, Hypokalemia, Cramps, muscle, general Patient Disposition: Xfer As Inpt ([facility]) Follow up with: Vladislav Latham PA-C [Primary Care Provider] - Prescriptions: No Action hydrochlorothiazide 12.5 mg tablet 12.5 mg tablet 12.5 mg PO BID 90 Days Qty: 180 RF: 3 coenzyme Q10 100 mg capsule 100 mg PO QDAY RF: 0 aspirin 81 mg tablet,chewable 81 mg PO QDAY RF: 0 polyethylene glycol 3350 [Miralax] 17 gram/dose powder 17 g PO .qod RF: 0 atorvastatin 10 mg tablet 10 mg PO QHS Qty: 90 RF: 3 vits 75-iron 28 mg-folic acid 800 mcg-omega3 440 mg oral pack 28-800-440 mg-mcg-mg combo pack PO RF: 0 magnesium oxide 400 mg magnesium tablet 400 mg PO QDAY RF: 0 cholecalciferol (vitamin D3) 2,000 unit capsule 2,000 unit PO Q OTHER DAY RF: 0
[2019-12-11] MEDS ORDERED: PROMETHAZINE 25 MG/ML VIAL IV PRN (05:02)
[2019-12-11] MEDS ORDERED: NALOXONE HCL 0.4 MG/ML VIAL IV PRN (05:02)
[2019-12-11] MEDS ORDERED: 0.9 % SODIUM CHLORIDE 1,000 ML IV SCH (05:15)
[2019-12-11] MEDS ORDERED: PROMETHAZINE 25 MG/ML VIAL IV ONE (05:23)
[2019-12-11 06:53] LABS: Blood Urea Nitrogen 16 mg/dl (8-23); Calcium 8.6 mg/dl (8.6-10.4); Carbon Dioxide 20 mmol/L (22-30); Glomerular Filtration Rate 66; Glucose 144 mg/dL (70-105)
[2019-12-11 07:15] LABS: Chloride 84 mmol/L (96-108)
[2019-12-11] MEDS ORDERED: POTASSIUM CHLORIDE 40 MEQ in DEXTROSE 5% IN WATER 500 ML IV PRN ×2 (07:39→08:00)
[2019-12-11] MEDS ORDERED: POTASSIUM CHLORIDE 20 MEQ/15 ML ML PO PRN (07:39)
[2019-12-11] MEDS ORDERED: MAGNESIUM SULFATE 2 GM/50 ML BAG IV PRN (07:39)
[2019-12-11] MEDS: 0.9 % SODIUM CHLORIDE 1,000 ML IV SCH ×2 (07:39→19:28)
--- NOTE | 2019-12-11 07:43 | Internal Med History&Physical ---
HPI History of Present Illness Patient information: Note initiated : 12/11/19 at 7:41 am Service Date, if different from initiated Date: [] Patient: Melody Bailey 89 y/o F admitted on 12/11/19 for high blood pressure. Chief Complaint: [] History of present illness: Ms. Bailey is a 89 year old F with a history of chronic kidney disease/HTN/HLD/GERD who presents to the ER after being directed by her primary care physician with elevated blood pressures and lower extremity cramping. Patient was evaluated in the ER due to excessive cramping received multiple doses of opioids. Systolics were over 180. She received antihypertensives with resultant improvement to 160s. Initial Work-up was consistent with hyponatremia sodium 119, potassium 2.9. She received crystalloid/potassium replacement. Subsequently hospitalist service was consulted for admission in light of critical hyperkalemia and hyponatremia. At the time evaluation patient is under the effect of opioids extremely sedated and unable to converse. no history could be obtained. She is barely able to open her eyes. Most of the history is obtained from review of medical records and from ER physician. Review of systems 10 point review system was attempted and could not be performed [facility] Medical History Allergic rhinitis (Chronic) Anemia (Chronic) Anxiety disorder (Resolved) Back pain (Resolved) Mahajan's palsy (Resolved) Benign paroxysmal positional vertigo (Inactive) Chronic kidney disease (CKD), stage III (moderate) (Chronic) Depression (Resolved) Diverticulosis of colon (Chronic) Gastroesophageal reflux (Inactive) Head injury (Chronic) 1996 Hip pain, bilateral (Resolved) History of polymyalgia rheumatica (Chronic) Hypercalcemia (Chronic) calcium normal PTH, vitamin D at goal ct calcium carbonate with vitamin D but cut back to one a day Hyperlipidemia (Chronic) Hypertension, essential (Chronic) Hypertensive renal disease (Chronic) Hypothyroidism, acquired (Ruled-out) Keratoconjunctivitis sicca not specified as Sjogren's (Chronic) Left hip pain (Resolved) Macular degeneration (Chronic) Obesity (Resolved) Osteoarthrosis (Chronic) Osteopenia (Chronic) Palpitations (Chronic) Paresthesia and pain of both upper extremities (Inactive) Partial optic atrophy (Chronic) Personal history of allergy to radiographic dye (Chronic) PMR (polymyalgia rheumatica) (Inactive) Polymyalgia (Inactive) Prediabetes (Chronic) Prediabetes, Diabetes Mellitus Pseudophakia (Chronic) PVC's (premature ventricular contractions) (Chronic) Renal osteodystrophy (Chronic) 10/06/2011 Trochanteric bursitis of left hip (Resolved) Vitamin D deficiency (Chronic) 10/06/2011 Vitreous degeneration (Chronic) Surgical History History of (Chronic) 1969 History of cataract surgery (Chronic) 1994 and 1995 History of colonoscopy (Chronic 08/17/16) 2009 History of hysterectomy (Chronic) 1970; Partial with one ovary left History of lumbar laminectomy (Chronic) 2005; Lumbar disc surgery. Laminectomy in [place]. 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 eating out: rarely or never smoking status: Never smoker alcohol intake frequency: does not drink substance use type: does not use ciara/jew: Restorationist seatbelt use: always additional history: glass of wine occasionally MEDS/ALLERGIES Home Medications and Allergies Home Medications Medication Instructions Recorded Confirmed Type coenzyme Q10 100 mg capsule 100 mg PO QDAY cap 09/25/18 12/10/19 History polyethylene glycol 3350 17 17 g PO .qod g 12/07/18 12/10/19 History gram/dose oral powder cholecalciferol (vitamin D3) 50 2,000 unit PO Q OTHER DAY cap 02/25/19 12/10/19 History mcg (2,000 unit) capsule magnesium oxide 400 mg PO QDAY 02/25/19 12/10/19 History aspirin 81 mg chewable tablet 81 mg PO QDAY tab 06/10/19 12/10/19 History hydrochlorothiazide 12.5 mg tablet 12.5 mg PO BID 90 Days #180 tab 11/26/19 Rx atorvastatin 10 mg tablet 10 mg PO QHS #90 tab 12/10/19 12/10/19 Rx Allergies Allergy/AdvReac Type Severity Reaction Status Date / Time amlodipine Allergy Mild itching Verified 12/10/19 20:34 Iodinated Contrast Media AdvReac Intermediate "MADE HER Verified 12/10/19 20:34 [Iodinated Contrast Media - PASS OUT" IV Dye] sulfamethoxazole AdvReac Intermediate dyspepsia, Verified 12/10/19 20:34 [From Bactrim] hyponatremia trimethoprim [From Bactrim] AdvReac Intermediate dyspepsia Verified 12/10/19 20:34 Amoxicillin [From Augmentin] AdvReac Mild Rash Verified 12/10/19 20:34 clavulanic acid AdvReac Mild Rash Verified 12/10/19 20:34 [From Augmentin] fluticasone AdvReac Mild Rash Verified 12/10/19 20:34 [From Advair Diskus] salmeterol AdvReac Mild Rash Verified 12/10/19 20:34 [From Advair Diskus] sodium chloride AdvReac Mild upset Verified 12/10/19 20:34 stomach EXAM Constitutional Vitals: Temp Pulse Resp BP Pulse Ox 98.7 F 47 L 20 165/100 95 12/11/19 07:00 12/11/19 06:51 12/11/19 07:00 12/11/19 07:00 12/11/19 07:00 Unresponsive/sedated Head normocephalic Oral cavity moist No ear nose discharge Eye appears symmetrical no pallor Neck supple no lymphadenopathy S1-S2 occasionally irregular Nonlabored breathing Nondistended nontender abdomen Lower extremity no cyanosis clubbing or joint swelling Skin no suspicious lesion Psych sedated, still drowsy during exam Neuro could not performed DATA Data Completed and Pending Labs on day of discharge: Labs from last 24 hours 12/11/19 12/10/19 12/10/19 05:30 22:05 21:43 WBC RBC Hgb Hct POC Hct MCV MCH MCHC RDW Plt Count MPV Gran % Lymph % (Auto) [place] % (Auto) Eos % (Auto) Baso % (Auto) Gran # Lymph # (Auto) [place] # (Auto) Eos # (Auto) Baso # (Auto) POC Sodium Sodium 119 L* POC Potassium Potassium 3.2 L 3.0 L POC Chloride Chloride 84 L Carbon Dioxide 20 L POC Total CO2 Anion Gap 15.0 POC BUN BUN 16 Creatinine 0.8 POC Creatinine GFR Calculation 66 Glucose 144 H POC Glucose Calcium 8.6 POC WB Ioniz Calcium Magnesium Total Bilirubin AST ALT Alkaline Phosphatase Total Protein Albumin Globulin Albumin/Globulin Ratio Urine Color Straw Urine Appearance Clear Urine pH 7.0 Ur Specific [place] 1.006 Urine Protein Neg Urine Glucose (UA) Negative Urine Ketones 5/tr A Urine Occult Blood Neg Urine Nitrate Neg Urine Bilirubin Neg Urine Urobilinogen Neg Ur Leukocyte Esterase Neg Urine RBC 1 Urine WBC 1 Ur Squamous Epith Cells 0 Urine Bacteria 0 Ur Culture Indicated? No 12/10/19 12/10/19 12/10/19 21:18 21:18 21:18 WBC 8.5 RBC 3.87 Hgb 11.5 Hct 33.0 L POC Hct MCV 85.3 MCH 29.7 MCHC 34.8 RDW 13.6 Plt Count 333 MPV 9.4 Gran % 66.1 Lymph % (Auto) 20.3 [place] % (Auto) 8.5 Eos % (Auto) 4.3 Baso % (Auto) 0.8 Gran # 5.62 Lymph # (Auto) 1.73 [place] # (Auto) 0.72 Eos # (Auto) 0.37 Baso # (Auto) 0.07 POC Sodium Sodium 119 L* POC Potassium Potassium 3.0 L POC Chloride Chloride 81 L Carbon Dioxide 21 L POC Total CO2 Anion Gap 17.0 H POC BUN BUN 22 Creatinine 0.9 POC Creatinine GFR Calculation 57 Glucose 113 H POC Glucose Calcium 8.8 POC WB Ioniz Calcium Magnesium 1.7 Total Bilirubin 0.3 AST 34 ALT 21 Alkaline Phosphatase 79 Total Protein 6.8 Albumin 4.1 Globulin 2.7 Albumin/Globulin Ratio 1.5 Urine Color Urine Appearance Urine pH Ur Specific [place] Urine Protein Urine Glucose (UA) Urine Ketones Urine Occult Blood Urine Nitrate Urine Bilirubin Urine Urobilinogen Ur Leukocyte Esterase Urine RBC Urine WBC Ur Squamous Epith Cells Urine Bacteria Ur Culture Indicated? 12/10/19 21:18 WBC RBC Hgb Hct POC Hct 38.0 MCV MCH MCHC RDW Plt Count MPV Gran % Lymph % (Auto) [place] % (Auto) Eos % (Auto) Baso % (Auto) Gran # Lymph # (Auto) [place] # (Auto) Eos # (Auto) Baso # (Auto) POC Sodium 121 L Sodium POC Potassium 2.9 L* Potassium POC Chloride 85 L Chloride Carbon Dioxide POC Total CO2 22 Anion Gap POC BUN 22 BUN Creatinine POC Creatinine 0.8 GFR Calculation Glucose POC Glucose 113 H Calcium POC WB Ioniz Calcium 1.07 L Magnesium Total Bilirubin AST ALT Alkaline Phosphatase Total Protein Albumin Globulin Albumin/Globulin Ratio Urine Color Urine Appearance Urine pH Ur Specific [place] Urine Protein Urine Glucose (UA) Urine Ketones Urine Occult Blood Urine Nitrate Urine Bilirubin Urine Urobilinogen Ur Leukocyte Esterase Urine RBC Urine WBC Ur Squamous Epith Cells Urine Bacteria Ur Culture Indicated? A/P Narrative A/P Narrative: * Euvolemic Hyponatremia secondary to hydrochlorothiazide use. Sodium 119. Check urine and serum osmolarity rule out SIADH. Continue gradual solute replacement * Hypokalemia 2.9, secondary to thiazide use. Aggressive replacement * Suboptimally controlled hypertension-transition to NANCY inhibitor/optimize medications. Discontinue thiazide due to electrolyte abnormalities * Muscle cramps likely secondary to abnormal electrolytes. PT OT nutrition support/monitor electrolytes * DNR * Prophylax Heparin Plan * Inpatient admission * Serum sodium check/urine 2.9 serum osmolarity * Potassium replacement * DC thiazide * Optimize hypertension management * Echocardiogram Time Spent With Patient Time: Total time spent is greater than 50% in coordination of care (as documented) at patient's floor/unit and/or counseling patient:
[2019-12-11 08:48] LABS: Basophils # (Auto) 0.03 K/mcL (0.00-0.30); Basophils % (Auto) 0.3 % (0.0-2.0); Eosinophils # (Auto) 0.27 K/mcL (0.00-0.70); Eosinophils % (Auto) 2.9 % (0.0-7.0); Granulocytes % (Auto) 80.6 % (38.0-78.0); Hematocrit 33.4 % (34.1-44.9); Hemoglobin 11.7 g/dL (11.2-15.7); Lymphocytes # (Auto) 1.04 K/mcL (1.50-4.80); Lymphocytes % (Auto) 11.3 % (15.5-49.0); Mean Cell Volume 84.8 fL (80.0-100.0); Mean Platelet Volume 9.5 fL (7.4-10.4); Monocytes # (Auto) 0.45 K/mcL (0.10-0.90); Monocytes % (Auto) 4.9 % (1.0-12.0); Platelet Count 317 K/mcL (140-440); RBC 3.94 M/mcL (3.59-5.38); Red Cell Distribution Width 13.2 % (11.5-14.5); WBC 9.2 K/mcL (4.50-11.00)
[2019-12-11] MEDS ORDERED: COENZYME Q10 100 MG PO SCH (09:00)
[2019-12-11] MEDS: POLYETHYLENE GLYCOL 3350 17 GM PACKET PO SCH (10:30)
[2019-12-11] MEDS: ASPIRIN 81 MG TAB.CHEW PO SCH (10:30)
[2019-12-11] MEDS: MAGNESIUM OXIDE 400 MG TABLET PO SCH (10:30)
[2019-12-11] MEDS: LISINOPRIL 5 MG TABLET PO SCH (10:44)
[2019-12-11] MEDS: VITAMIN D3 1,000 UNIT TABLET PO SCH (10:44)
[2019-12-11] MEDS: ACETAMINOPHEN 325 MG TABLET PO PRN ×2 (15:29→19:44)
[2019-12-11] MEDS: ATORVASTATIN 10 MG TABLET PO SCH (19:45)
[2019-12-12] MEDS: 0.9 % SODIUM CHLORIDE 1,000 ML IV SCH ×3 (06:27→23:45)
[2019-12-12 06:31] LABS: Basophils # (Auto) 0.05 K/mcL (0.00-0.30); Basophils % (Auto) 0.6 % (0.0-2.0); Eosinophils # (Auto) 0.37 K/mcL (0.00-0.70); Eosinophils % (Auto) 4.8 % (0.0-7.0); Granulocytes % (Auto) 59.7 % (38.0-78.0); Hematocrit 32.4 % (34.1-44.9); Hemoglobin 11.3 g/dL (11.2-15.7); Lymphocytes # (Auto) 2.05 K/mcL (1.50-4.80); Lymphocytes % (Auto) 26.6 % (15.5-49.0); Mean Corpuscular HGB Conc 34.9 g/dL (31.0-36.0); Mean Platelet Volume 9.3 fL (7.4-10.4); Monocytes # (Auto) 0.64 K/mcL (0.10-0.90); Monocytes % (Auto) 8.3 % (1.0-12.0); Platelet Count 306 K/mcL (140-440); RBC 3.81 M/mcL (3.59-5.38); Red Cell Distribution Width 13.5 % (11.5-14.5); WBC 7.7 K/mcL (4.50-11.00)
[2019-12-12 06:55] LABS: ALT/SGPT 18 U/l (0-40); AST/SGOT 40 U/l (0-37); Albumin 3.5 gm/dL (3.2-5.2); Albumin/Globulin Ratio 1.5 (1.0-2.3); Alkaline Phosphatase 67 U/L (39-117); Bilirubin,Direct < 0.2 mg/dL (0.0-0.3); Bilirubin,Total 0.4 mg/dL (0.0-1.0); Blood Urea Nitrogen 12 mg/dl (8-23); Calcium 8.6 mg/dl (8.6-10.4); Carbon Dioxide 22 mmol/L (22-30); Globulin 2.3 gm/dL (2.2-3.7); Glomerular Filtration Rate 57; Glucose 87 mg/dL (70-105); Lactate Dehydrogenase 183 U/L (94-250); Phosphorous 2.4 mg/dL (2.7-4.5); Triglycerides 67 mg/dl (<150); Uric Acid 4.3 mg/dL (2.5-8.0)
[2019-12-12 06:56] LABS: Chloride 91 mmol/L (96-108)
[2019-12-12] MEDS: ACETAMINOPHEN 325 MG TABLET PO PRN ×2 (09:14→20:31)
[2019-12-12] MEDS: MAGNESIUM OXIDE 400 MG TABLET PO SCH (09:14)
[2019-12-12] MEDS: ASPIRIN 81 MG TAB.CHEW PO SCH (09:14)
[2019-12-12] MEDS: HEPARIN 5,000 UNIT/ML VIAL SQ SCH ×2 (10:02→20:31)
[2019-12-12] MEDS: LISINOPRIL 5 MG TABLET PO SCH (10:03)
--- NOTE | 2019-12-12 11:22 | Internal Med Progress Note ---
SUBJECTIVE Subjective Patient information: Note initiated : 12/12/19 at 11:16 am Service Date, if different from initiated Date: [] Patient: Melody Bailey 89 y/o F admitted on 12/11/19 for high blood pressure. Chief Complaint: [] Interval history: Narrative: bertha Bailey is a 89 year old F with a history of chronic kidney disease/HTN/HLD/GERD who presents to the ER after being directed by her primary care physician with elevated blood pressures and lower extremity cramping. Patient was evaluated in the ER due to excessive cramping received multiple doses of opioids. Systolics were over 180. She received antihypertensives with resultant improvement to 160s. Initial Work-up was consistent with hyponatremia sodium 119, potassium 2.9. She received crystalloid/potassium replacement. Subsequently hospitalist service was consulted for admission in light of critical hyperkalemia and hyponatremia. At the time evaluation patient is under the effect of opioids extremely sedated and unable to converse. no history could be obtained. She is barely able to open her eyes. Most of the history is obtained from review of medical records and from ER physician. 12/11-patient doing well. No overnight events. No concerns per nursing staff. Sodium gradually improving now at 123. Urine osmolarity consistent with SIADH. Continue free water restriction/salt tabs. Over 3000 cc net negative fluid balance following Conway's placement. Likely postobstructive diuresis. Constitutional Vitals: Vital Signs Temp Pulse Resp BP Pulse Ox 98.4 F 44 L 15 142/61 100 12/12/19 10:01 12/12/19 02:00 12/12/19 10:08 12/12/19 10:01 12/12/19 06:01 Period Temp Pulse Resp BP Sys/Trent Pulse Ox Last 24 Hr 97.0 F-99.5 F 44-59 9-20 81-153/41-92 93-100 Intake and Output 12/11/19 12/12/19 12/12/19 21:59 05:59 13:59 Intake Total 1107 300 Output Total 900 1580 Balance 207 -1280 Weight 63.503 kg 63.503 kg Patient Weight 12/13/19 05:59 Weight 63.503 kg Conway is draining clear urine Alert and respond to commands Minimal lymphedema No telemetry events Systolics at goal Intake & Output: Intake & Output 12/11/19 12/12/19 12/12/19 21:59 05:59 13:59 Intake Total 1107 300 Output Total 900 1580 Balance 207 -1280 Weight 63.503 kg 63.503 kg Intake: IV 1107 Sodium Chloride 0.9% 1,000 ml @ 587 75 mls/hr IV .[id number] [place] Rx#: [id number] Potassium Chloride 40 Meq In 520 Dextrose 5% in Water 500 ml @ 130 mls/hr IV UD PRN Rx#: [id number] Oral 300 Output: Urine Catheter Amount 900 1580 Other: Urine Appearance Clear Clear Uretheral (Conway) Clear Clear Urine Color Pale Pale Uretheral (Conway) Pale Pale Urine Odor Normal Uretheral (Conway) Normal OBJ DATA Labs CBC & Chem 7: 12/12/19 04:53 12/12/19 04:53 Labs: Abnormal Lab Results 12/12/19 12/12/19 12/12/19 04:53 04:53 00:12 Hct 32.4 L Gran % Lymph % (Auto) Lymph # (Auto) POC Sodium Sodium 123 L 121 L POC Potassium Potassium POC Chloride Chloride 91 L Carbon Dioxide Anion Gap Glucose POC Glucose Osmolality POC WB Ioniz Calcium Phosphorus 2.4 L AST 40 H Total Protein 5.8 L Urine Ketones 12/11/19 12/11/19 12/11/19 20:00 16:31 12:08 Hct Gran % Lymph % (Auto) Lymph # (Auto) POC Sodium Sodium 123 L 123 L 120 L POC Potassium Potassium POC Chloride Chloride Carbon Dioxide Anion Gap Glucose POC Glucose Osmolality POC WB Ioniz Calcium Phosphorus AST Total Protein Urine Ketones 12/11/19 12/11/19 12/11/19 08:00 08:00 05:30 Hct 33.4 L Gran % 80.6 H Lymph % (Auto) 11.3 L Lymph # (Auto) 1.04 L POC Sodium Sodium 119 L* 119 L* POC Potassium Potassium 3.2 L POC Chloride Chloride 84 L Carbon Dioxide 20 L Anion Gap Glucose 144 H POC Glucose Osmolality 253 L POC WB Ioniz Calcium Phosphorus AST Total Protein Urine Ketones 12/10/19 12/10/19 12/10/19 22:05 21:43 21:18 Hct 33.0 L Gran % Lymph % (Auto) Lymph # (Auto) POC Sodium Sodium POC Potassium Potassium 3.0 L POC Chloride Chloride Carbon Dioxide Anion Gap Glucose POC Glucose Osmolality POC WB Ioniz Calcium Phosphorus AST Total Protein Urine Ketones 5/tr A 12/10/19 12/10/19 21:18 21:18 Hct Gran % Lymph % (Auto) Lymph # (Auto) POC Sodium 121 L Sodium 119 L* POC Potassium 2.9 L* Potassium 3.0 L POC Chloride 85 L Chloride 81 L Carbon Dioxide 21 L Anion Gap 17.0 H Glucose 113 H POC Glucose 113 H Osmolality POC WB Ioniz Calcium 1.07 L Phosphorus AST Total Protein Urine Ketones Meds: Medications Acetaminophen (Tylenol) 650 mg PO Q4HP PRN; Protocol PRN Reason: Per Pain Protocol/Fever > 101 Last Admin: 12/12/19 09:14 Dose: 650 mg Documented by: Aspirin (Aspirin) 81 mg PO QDAY [facility] Last Admin: 12/12/19 09:14 Dose: 81 mg Documented by: Atorvastatin Calcium (Lipitor) 10 mg PO QHS [facility] Last Admin: 12/11/19 19:45 Dose: 10 mg Documented by: Heparin Sodium (Porcine) (Heparin) 5,000 unit SQ Q12 [facility] Last Admin: 12/12/19 10:02 Dose: 5,000 unit Documented by: Hydromorphone HCl (Dilaudid) 0.5 mg IV Q15MIN PRN; Protocol PRN Reason: Per Pain Protocol Last Admin: 12/11/19 02:05 Dose: 0.5 mg Documented by: Sodium Chloride (Sodium Chloride 0.9%) 1,000 mls @ 50 mls/hr IV .Q20H [facility] Last Admin: 12/12/19 06:27 Dose: Not Given Documented by: Magnesium Sulfate (Magnesium Sulfate) 2 gm in 50 mls @ 50 mls/hr IV UD PRN PRN Reason: Mag < or = 1.7 Last Infusion: 12/11/19 11:00 Dose: Infused Documented by: Potassium Chloride 40 meq/ (Dextrose) 520 mls @ 130 mls/hr IV UD PRN PRN Reason: K+ = or < 3.5 Last Infusion: 12/11/19 15:29 Dose: Infused Documented by: Lisinopril (Zestril) 5 mg PO DAILY [facility] Last Admin: 12/12/19 10:03 Dose: 5 mg Documented by: Magnesium Oxide (Magnesium Oxide) 400 mg PO QDAY [facility] Last Admin: 12/12/19 09:14 Dose: 400 mg Documented by: Morphine Sulfate (Morphine) 2 mg IV Q1HP PRN; Protocol PRN Reason: Chest Pain Last Admin: 12/11/19 16:36 Dose: 2 mg Documented by: Naloxone HCl (Narcan) 0.1 mg IV Q2MIN PRN PRN Reason: Opiate Reversal Polyethylene Glycol (Miralax) 17 gm PO Q48H [facility] Last Admin: 12/11/19 10:30 Dose: 17 gm Documented by: Potassium Chloride (Potassium Chloride) 20 meq PO BIDP PRN PRN Reason: K <3.6 Promethazine HCl (Phenergan) 12.5 mg IV Q6HP PRN PRN Reason: Nausea And Vomiting Vitamin D (Vitamin D3) 2,000 unit PO Q48H [facility] Last Admin: 12/11/19 10:44 Dose: 2,000 unit Documented by: A/P Narrative A/P Narrative: * Euvolemic 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 Sodium improved to 123. * Hypokalemia-secondary to thiazide use. Resolved with replacement now at 3.6 * Suboptimally controlled hypertension-continue NANCY inhibitor. Systolics now at goal. DC'd thiazide due to electrolyte abnormality including hypokalem ia/hyponatremia. Echocardiogram EF 60% grade 1 diastolic dysfunction. * Urinary retention status post Conway's catheter. * Muscle cramps likely secondary to abnormal electrolytes. Clinically resolved. PT OT nutrition support/monitor electrolytes * DNR * Prophylax Heparin Plan * Continue electrolyte placement * DC thiazide * Discharge on NANCY inhibitor * DC Conway's and perform voiding trials. If persistent retention will follow-up with urology as outpatient Time Spent With Patient Time: Total time spent is greater than 50% in coordination of care (as documented) at patient's floor/unit and/or counseling patient: QUALITY VTE Deep Vein Thrombosis/Pulmonary Embolism Present on Admission: No
[2019-12-12] MEDS: ATORVASTATIN 10 MG TABLET PO SCH (20:31)
[2019-12-13] MEDS: ACETAMINOPHEN 325 MG TABLET PO PRN (01:58)
[2019-12-13 06:22] LABS: Basophils # (Auto) 0.05 K/mcL (0.00-0.30); Basophils % (Auto) 0.7 % (0.0-2.0); Eosinophils # (Auto) 0.38 K/mcL (0.00-0.70); Granulocytes % (Auto) 64.4 % (38.0-78.0); Hematocrit 32.7 % (34.1-44.9); Hemoglobin 11.2 g/dL (11.2-15.7); Lymphocytes # (Auto) 1.64 K/mcL (1.50-4.80); Lymphocytes % (Auto) 21.4 % (15.5-49.0); Mean Cell Volume 86.5 fL (80.0-100.0); Mean Corpuscular HGB Conc 34.3 g/dL (31.0-36.0); Mean Platelet Volume 9.9 fL (7.4-10.4); Monocytes # (Auto) 0.65 K/mcL (0.10-0.90); Monocytes % (Auto) 8.5 % (1.0-12.0); Platelet Count 315 K/mcL (140-440); RBC 3.78 M/mcL (3.59-5.38); Red Cell Distribution Width 14.2 % (11.5-14.5); WBC 7.7 K/mcL (4.50-11.00)
[2019-12-13 06:45] LABS: ALT/SGPT 17 U/l (0-40); AST/SGOT 34 U/l (0-37); Albumin 3.5 gm/dL (3.2-5.2); Albumin/Globulin Ratio 1.7 (1.0-2.3); Alkaline Phosphatase 66 U/L (39-117); Bilirubin,Direct < 0.2 mg/dL (0.0-0.3); Bilirubin,Total 0.3 mg/dL (0.0-1.0); Blood Urea Nitrogen 17 mg/dl (8-23); Calcium 8.6 mg/dl (8.6-10.4); Carbon Dioxide 22 mmol/L (22-30); Globulin 2.1 gm/dL (2.2-3.7); Glomerular Filtration Rate 66; Glucose 85 mg/dL (70-105); Lactate Dehydrogenase 171 U/L (94-250); Phosphorous 2.6 mg/dL (2.7-4.5); Triglycerides 79 mg/dl (<150); Uric Acid 4.2 mg/dL (2.5-8.0)
[2019-12-13 06:47] LABS: Chloride 104 mmol/L (96-108)
[2019-12-13] MEDS: VITAMIN D3 1,000 UNIT TABLET PO SCH (08:26)
[2019-12-13] MEDS: ASPIRIN 81 MG TAB.CHEW PO SCH (08:27)
[2019-12-13] MEDS: MAGNESIUM OXIDE 400 MG TABLET PO SCH (08:27)
[2019-12-13] MEDS: LISINOPRIL 5 MG TABLET PO SCH (08:27)
[2019-12-13] MEDS: HEPARIN 5,000 UNIT/ML VIAL SQ SCH (08:27)
[2019-12-13] MEDS: POLYETHYLENE GLYCOL 3350 17 GM PACKET PO SCH (08:37)
--- NOTE | 2019-12-13 09:19 | Discharge Summary ---
Discharge Provider Provider Patient information: Note initiated : 12/13/19 at 9:17 am Service Date, if different from initiated Date: [] Patient: Melody Bailey 89 y/o F admitted on 12/11/19 for high blood pressure. Chief Complaint: [] Date of admission: 12/11/19 06:45 Discharge date: 12/13/19 Primary care physician: Vladislav Latham Consults: 12/11/19 Consult to Physician [CONS] Stat Comment: Consulting Provider: Alphonso Ramirez Reason For Exam: Physician to Consult Discharge Meds Discharge Medications Home Medications coenzyme Q10 100 mg capsule 100 mg PO QDAY cap 09/25/18 [History Confirmed 12/10/19 Last Taken Unknown] polyethylene glycol 3350 17 gram/dose oral powder 17 g PO .qod g 12/07/18 [History Confirmed 12/10/19 Last Taken Unknown] cholecalciferol (vitamin D3) 50 mcg (2,000 unit) capsule 2,000 unit PO Q OTHER DAY cap 02/25/19 [History Confirmed 12/10/19 Last Taken Unknown] magnesium oxide 400 mg PO QDAY 02/25/19 [History Confirmed 12/10/19 Last Taken Unknown] aspirin 81 mg chewable tablet 81 mg PO QDAY tab 06/10/19 [History Confirmed 12/10/19 Last Taken Unknown] atorvastatin 10 mg tablet 10 mg PO QHS #90 tab 12/10/19 [Rx Confirmed 12/10/19 Last Taken Unknown] lisinopril 5 mg PO DAILY #30 tab 12/13/19 [Rx Last Taken Unknown] COURSE Hospital Course Hospital Course: Discharge diagnosis * Euvolemic 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 Sodium improved 136 with free water restriction/salt tabs and discontinuation of thiazide * Hypokalemia-secondary to thiazide use. Resolved with replacement * Suboptimally controlled hypertension-clinically improved on NANCY inhibitor. Systolics now at goal. DC'd thiazide due to electrolyte abnormality including hypokalemia/hyponatremia. Echocardiogram EF 60% grade 1 diastolic dysfunction. * Muscle cramps likely secondary to abnormal electrolytes. Clinically resolved. PT OT nutrition support/monitor electrolytes Brief hospital course Leo is a 89 year old F with a history of chronic kidney disease/HTN/HLD/GERD who presents to the ER after being directed by her primary care physician with elevated blood pressures and lower extremity cramping. Patient was evaluated in the ER due to excessive cramping received multiple doses of opioids. Systolics were over 180. She received antihypertensives with resultant improvement to 160s. Initial Work-up was consistent with hyponatremia sodium 119, potassium 2.9. She received crystalloid/potassium replacement. Subsequently hospitalist service was consulted for admission in light of critical hyperkalemia and hyponatremia. At the time evaluation patient is under the effect of opioids extremely sedated and unable to converse. no history could be obtained. She is barely able to open her eyes. Most of the history is obtained from review of medical records and from ER physician. 12/11-patient doing well. No overnight events. No concerns per nursing staff. Sodium gradually improving now at 123. Urine osmolarity consistent with SIADH. Continue free water restriction/salt tabs. Over 3000 cc net negative fluid balance following Conway's placement. Likely postobstructive diuresis. 12/12-patient clinically improved. Cramps resolved. No telemetry events. Sodium up to 136 with free water restriction/salt tabs. Hydrochlorothiazide discontinued. Blood pressure stable on NANCY inhibitor. Discharging home with advised to follow primary care physician. Discharge diagnosis: . Time Spent with Patient Time attestation: Total time spent providing and/or coordinating discharge services: Time spent: Greater than 30 minutes EXAM Constitutional Vitals: Temp Pulse Resp BP Pulse Ox 97.8 F 64 16 145/91 97 12/13/19 07:52 12/12/19 13:56 12/13/19 07:52 12/13/19 07:52 12/13/19 07:52 Discharge Data Data Completed and Pending Labs on day of discharge: Labs from last 24 hours 12/13/19 12/13/19 04:40 04:40 WBC 7.7 RBC 3.78 Hgb 11.2 Hct 32.7 L MCV 86.5 MCH 29.6 MCHC 34.3 RDW 14.2 Plt Count 315 MPV 9.9 Gran % 64.4 Lymph % (Auto) 21.4 [place] % (Auto) 8.5 Eos % (Auto) 5.0 Baso % (Auto) 0.7 Gran # 4.94 Lymph # (Auto) 1.64 [place] # (Auto) 0.65 Eos # (Auto) 0.38 Baso # (Auto) 0.05 Sodium 136 Potassium 3.8 Chloride 104 Carbon Dioxide 22 Anion Gap 10.0 BUN 17 Creatinine 0.8 GFR Calculation 66 Glucose 85 Uric Acid 4.2 Calcium 8.6 Phosphorus 2.6 L Magnesium 2.2 Total Bilirubin 0.3 Direct Bilirubin < 0.2 GGT 15 AST 34 ALT 17 Alkaline Phosphatase 66 Lactate Dehydrogenase 171 Total Protein 5.6 L Albumin 3.5 Globulin 2.1 L Albumin/Globulin Ratio 1.7 Triglycerides 79 Discharge Plan Patient/Caregiver Discharge Instructions Activity: increase activity as tolerated Diet: Regular Diet Instructions: Hyponatremia (GEN), Hypokalemia (GEN), Hypertension (GEN) Activity Restrictions/Additional Instructions: Follow-up PCP in 5 to 7 days Discontinue hydrochlorothiazide Continue lisinopril 5 mg daily Regular diet This discharge packet is provided to you to help keep you informed about your care. We want to ensure you get everything you need when you go home. You will also be receiving a call from us in a few days to follow up with you and see how you are doing since your discharge. This gives us a chance to listen to any concerns you maybe experiencing since you were discharged or any additional needs you may have, as well as providing us feedback on your care experience. We strive to always provide excellent care and thank you for your feedback and for choosing [facility]. Prescriptions: New lisinopril 5 mg Tablet 5 mg PO DAILY Qty: 30 RF: 0 Continued coenzyme Q10 100 mg capsule 100 mg PO QDAY RF: 0 aspirin 81 mg tablet,chewable 81 mg PO QDAY RF: 0 polyethylene glycol 3350 [Miralax] 17 gram/dose powder 17 g PO .qod RF: 0 atorvastatin 10 mg tablet 10 mg PO QHS Qty: 90 RF: 3 magnesium oxide 400 mg magnesium tablet 400 mg PO QDAY RF: 0 cholecalciferol (vitamin D3) 2,000 unit capsule 2,000 unit PO Q OTHER DAY RF: 0 Discontinued hydrochlorothiazide 12.5 mg tablet 12.5 mg tablet 12.5 mg PO BID 90 Days Qty: 180 RF: 3 Follow Up Plan Follow up with: Vladislav Latham PA-C [Primary Care Provider] - 12/18/19 11:30 am (Please check in at 11:15 am) Patient Disposition: Home, Self-Care Hospital Course: Discharge diagnosis * Euvolemic 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 Sodium improved 136 with free water restriction/salt tabs and discontinuation of thiazide * Hypokalemia-secondary to thiazide use. Resolved with replacement * Suboptimally controlled hypertension-clinically improved on NANCY inhibitor. Systolics now at goal. DC'd thiazide due to electrolyte abnormality including hypokalemia/hyponatremia. Echocardiogram EF 60% grade 1 diastolic dysfunction. * Muscle cramps likely secondary to abnormal electrolytes. Clinically resolved. PT OT nutrition support/monitor electrolytes Brief hospital course Leo is a 89 year old F with a history of chronic kidney disease/HTN/HLD/GERD who presents to the ER after being directed by her primary care physician with elevated blood pressures and lower extremity cramping. Patient was evaluated in the ER due to excessive cramping received multiple doses of opioids. Systolics were over 180. She received antihypertensives with resultant improvement to 160s. Initial Work-up was consistent with hyponatremia sodium 119, potassium 2.9. She received crystalloid/potassium replacement. Subsequently hospitalist service was consulted for admission in light of critical hyperkalemia and hyponatremia. At the time evaluation patient is under the effect of opioids extremely sedated and unable to converse. no history could be obtained. She is barely able to open her eyes. Most of the history is obtained from review of medical records and from ER physician. 12/11-patient doing well. No overnight events. No concerns per nursing staff. Sodium gradually improving now at 123. Urine osmolarity consistent with SIADH. Continue free water restriction/salt tabs. Over 3000 cc net negative fluid balance following Conway's placement. Likely postobstructive diuresis. 12/12-patient clinically improved. Cramps resolved. No telemetry events. Sodium up to 136 with free water restriction/salt tabs. Hydrochlorothiazide discontinued. Blood pressure stable on NANCY inhibitor. Discharging home with advised to follow primary care physician. Overall status at discharge: patient is progressing back to baseline Discharge Orders: Discharge Order (Routine); Ordered 12/13/19 Ordered By: Alphonso MANZANARES VTE Deep Vein Thrombosis/Pulmonary Embolism Present on Admission: No
== END 2019-12-13 10:30 | disposition home or self-care (01) | DRG 645 ==
LOC: ED 20:27 → ICU 12-11 06:44
PROVIDERS: ADMIT Internal Medicine; ATTEND Internal Medicine